=== PATIENT | female | born 1940 | race Caucasian/White ===

== ENCOUNTER → 2016-11-22 | Outpatient (CLI) | payer MEDICARE, BC | LOC: MW.CHGS 08:00 | PROVIDERS: ATTEND Surgery | DX: K57.90 Diverticulosis of intestine, part unspecified, without perforation or abscess without bleeding (principal); K52.9 Noninfective gastroenteritis and colitis, unspecified; E11.9 Type 2 diabetes mellitus without complications | CPT/HCPCS: G0463 ==

== ENCOUNTER 2017-09-17 21:26 | Observation (INO) | payer MEDICARE, BC ==
[2017-09-17] MEDS ORDERED: Diltiazem 25 MG/5 ML SDV IVPUSH ONE (21:37)
[2017-09-17] MEDS ORDERED: Sodium Chloride 0.9% 2.5 ML Syringe FLUSH PRN (21:37)
[2017-09-17] MEDS ORDERED: Sodium Chloride 0.9% 10 ML Syringe FLUSH PRN (21:37)
[2017-09-17] MEDS ORDERED: Sodium Chloride 0.9% 1,000 ML IV ONE (21:37)
--- NOTE | 2017-09-17 21:41 | EDM.PDOC ---
ED HPI GENERAL MEDICAL PROBLEM - General Chief Complaint: Cardiovascular Problem Stated Complaint: PT HEART RACING Time Seen by Provider: 09/17/17 21:30 - History of Present Illness INITIAL COMMENTS - FREE TEXT/NARRATIVE: HISTORY AND PHYSICAL: History of present illness: The patient is a 77-year-old female who follows at [facility] with Dr. Brooks and was in fact seen there today by Lisa Morton and has a history of hypercholesterolemia hypertension and insulin requiring diabetes as well as diverticulitis and presents to the ER with palpitations/racing heart that started a few hours ago. Patient said that she has been on antibiotic for diverticulitis the last 5 days and on her clinic visit today the provider stopped one of those antibiotics. Her blood sugar has been running on the higher side in the 300s the last few days and she saw the agency operator at [place] as well today who increased her insulin dose. Patient says that the diverticulitis is not causing any pain and she has not had fevers nausea vomiting or diarrhea. She's been eating and drinking normally. Patient has never had any arrhythmias or thyroid disease and has never had any cardiac problems. She says she's been having normal urine output and has no complaints. She said that her sugar has been consistently high but she has not been able to try the new adjustment that was started today. She denies any chest pain shortness of breath lightheadedness or dizziness with these palpitations. She also tells me that her blood pressure has been running on the higher side recently as well and her provider was aware of that. Patient also denies any upper respiratory symptoms and fevers. Patient has not had symptoms of polyuria or polydipsia consistent with elevated blood sugar and she says that her blood sugars have been running high for several days prior to the onset of this palpitations. Please note that the patient was taking her NovoLog insulin 10 units a day and the agency operator increased it to 11 units a day Review of systems: As per history of present illness and below otherwise all systems reviewed and negative. Past medical history: As per history of present illness and as reviewed below otherwise noncontributory. Surgical history: As per history of present illness and as reviewed below otherwise noncontributory. Social history: No reported history of drug or alcohol abuse. Family history: As per history of present illness and as reviewed below otherwise noncontributory. Physical exam: Gen.: Well-developed well-nourished thin female who is nontoxic and vital signs of the note by me. HEENT: Atraumatic, normocephalic, pupils reactive, negative for conjunctival pallor or scleral icterus, mucous membranes moist, throat clear, neck supple, nontender, trachea midline. There is no thyromegaly. Lungs: Clear to auscultation, breath sounds equal bilaterally, chest nontender. Heart: S1S2, regular rhythm but tachycardic rate of my evaluation, negative for clicks, rubs, or JVD. Abdomen: Soft, nondistended, nontender. There is no masses rebound guarding or any tenderness on diffuse palpation. Negative for masses or hepatosplenomegaly. Negative for costovertebral tenderness. Pelvis: Stable nontender. Genitourinary: Deferred. Rectal: Deferred. Extremities: Atraumatic, negative for cords or calf pain. Neurovascular unremarkable. No pedal edema or leg asymmetry Neuro: Awake, alert, oriented. Cranial nerves II through XII unremarkable. Cerebellum unremarkable. Motor and sensory unremarkable throughout. Exam nonfocal. Diagnostics: EKG 2 CBC CMP troponin TSH serum ketones INR UA chest x-ray magnesium lactic acid Therapeutics: IV O2 monitor IV fluids Cardizem insulin as needed 2218: Dr. Queen is in the ER seeing another patient and I have informed him of this case. He would like to add a magnesium and a lactate to the patient's labs and he is aware on giving IV fluids insulin for her Accu-Chek here as well as Cardizem. He is agreeable to observation admission. 2250: Patient's heart rate is improved and we will repeat an EKG to document this and to reevaluate the rhythm. 2325: I discussed with the patient all testing care results and my concern about the sudden onset of tachycardia which is since resolved with IV fluids and Cardizem. I discussed observation on telemetry and she is agreeable. Dr. Queen had seen the patient earlier and said that if all workup was normal that he would be agreeable to admission Impression: Sudden onset of palpitations improved, mild hyperglycemia with history of diabetes Definitive disposition and diagnosis as appropriate pending reevaluation and review of above. denies chest pain Pain Score (Numeric/FACES): 0 - Related Data Allergies Allergy/AdvReac Type Severity Reaction Status Date / Time celecoxib [From Celebrex] Allergy Airway Verified 09/17/17 21:34 Tightness Sulfa (Sulfonamide Allergy Anaphylactic Verified 09/17/17 21:34 Antibiotics) Shock Home Meds: Home Meds Aspirin [Adult Low Dose Aspirin EC] 1 tab PO DAILY 10/03/16 [History] Calcium Citrate/Vitamin D3 [Citracal + D Maximum Caplet] 1 tab PO BID 10/03/16 [ History] Naproxen Sodium [Aleve] 1 tab PO ASDIRECTED PRN 10/03/16 [History] [place]-3S/DHA/Epa/Fish Oil [[place]-3 Fish Oil 1,200 mg Sfgl] 1 cap PO DAILY [History] Simvastatin [Zocor] 1 tab PO DAILY 10/03/16 [History] Insulin Isophane NPH, Human [NovoLIN N] 11 units INJECT DAILY 09/17/17 [History] Pioglitazone HCl [Pioglitazone HCl] 1 tab PO DAILY 09/17/17 [History] Past Medical History Other HEENT History: wears glasses Cardiovascular History: Reports: High Cholesterol Respiratory History: Reports: None Gastrointestinal History: Reports: Chronic Diarrhea, Diverticulosis Genitourinary History: Reports: None MINER OPERATOR History: Reports: None Musculoskeletal History: Reports: Arthritis, Back Pain, Chronic Neurological History: Reports: None Psychiatric History: Reports: None Endocrine/Metabolic History: Reports: Diabetes, Type II Hematologic History: Reports: None Immunologic History: Reports: None Oncologic (Cancer) History: Reports: None Dermatologic History: Reports: None - Infectious Disease History Infectious Disease History: Reports: None - Past Surgical History Head Surgeries/Procedures: Reports: None HEENT Surgical History: Reports: None Respiratory Surgical History: Reports: None Female Surgical History: Reports: Hysterectomy, Oophorectomy Neurological Surgical History: Reports: None Musculoskeletal Surgical History: Reports: Shoulder Surgery Oncologic Surgical History: Reports: None Dermatological Surgical History: Reports: None Social & Family History - Family History Family Medical History: Noncontributory - Tobacco Use Smoking Status *Q: Never Smoker - Caffeine Use Caffeine Use: Reports: Coffee - Recreational Drug Use Recreational Drug Use: No Drug Use in Last 12 Months: No ED ROS GENERAL - Review of Systems Review Of Systems: ROS reveals no pertinent complaints other than HPI. ED EXAM, GENERAL - Physical Exam Exam: See Below (See dictation) Course - Vital Signs Last Recorded V/S: Last Vital Signs Temp 36.4 C 09/17/17 21:34 Pulse 78 09/17/17 23:02 Resp 20 09/17/17 23:02 BP 152/92 H 09/17/17 23:02 Pulse Ox 98 09/17/17 23:02 - Orders/Labs/Meds Orders: Active Orders 24 hr Category Date Time Status Patient Status [ADT] Stat ADT 09/17/17 23:38 Ordered Blood Glucose Check, Bedside [RC] ONETIME Care 09/17/17 21:36 Active Cardiac Monitoring [RC] . DIRECTED Care 09/17/17 21:36 Active EKG Documentation Completion [RC] STAT Care 09/17/17 21:36 Active EKG Documentation Completion [RC] STAT Care 09/17/17 22:58 Active Oxygen Therapy, ED [RC] ASDIRECTED Care 09/17/17 21:36 Active Pulse Oximetry [RC] ASDIRECTED Care 09/17/17 21:36 Active Chest 1V Frontal [CR] Stat Exams 09/17/17 21:42 Taken Sodium Chloride 0.9% [Saline Flush] Med 09/17/17 21:37 Active 10 ml FLUSH ASDIRECTED PRN Sodium Chloride 0.9% [Saline Flush] Med 09/17/17 21:37 Active 2.5 ml FLUSH ASDIRECTED PRN Saline Lock Insert [OM.PC] Stat Oth 09/17/17 21:36 Ordered Medication Orders Sodium Chloride (Saline Flush) 10 ml FLUSH ASDIRECTED PRN PRN Reason: Keep Vein Open Sodium Chloride (Saline Flush) 2.5 ml FLUSH ASDIRECTED PRN PRN Reason: Keep Vein Open Labs: Laboratory Tests 09/17/17 09/17/17 09/17/17 Range/Units 21:50 22:12 22:12 WBC 4.44 (4.0-11.0) K/uL RBC 4.21 L (4.30-5.90) M/uL Hgb 12.4 (12.0-16.0) g/dL Hct 36.7 (36.0-46.0) % MCV 87.2 (80.0-98.0) fL MCH 29.5 (27.0-32.0) pg MCHC 33.8 (31.0-37.0) g/dL RDW Std Deviation 43.0 (28.0-62.0) fl RDW Coeff of Shae 14 (11.0-15.0) % Plt Count 331 (150-400) K/uL MPV 9.20 (7.40-12.00) fL Neut % (Auto) 54.1 (48.0-80.0) % Lymph % (Auto) 22.7 (16.0-40.0) % Peach % (Auto) 11.0 (0.0-15.0) % Eos % (Auto) 11.3 H (0.0-7.0) % Baso % (Auto) 0.9 (0.0-1.5) % Neut # (Auto) 2.4 (1.4-5.7) K/uL Lymph # (Auto) 1.0 (0.6-2.4) K/uL Peach # (Auto) 0.5 (0.0-0.8) K/uL Eos # (Auto) 0.5 (0.0-0.7) K/uL Baso # (Auto) 0.0 (0.0-0.1) K/uL Nucleated RBC % 0.0 /100WBC Nucleated RBCs # 0 K/uL INR 1.12 H (0.86-1.11) Lactate (0.20-2.00) mmol/L Sodium 137 (136-146) mmol/L Potassium 4.2 (3.5-5.1) mmol/L Chloride 105 (98-110) mmol/L Carbon Dioxide 23 (21-31) mmol/L BUN 14 (6.0-23.0) mg/dL Creatinine 1.1 (0.6-1.5) mg/dL Est Cr Clr Drug Dosing 36.39 mL/min Estimated GFR (MDRD) 48.4 ml/min Glucose 352 H (60-110) mg/dL POC Glucose (60-110) mg/dL Calcium 9.4 (8.8-10.8) mg/dL Magnesium (1.5-2.3) mEq/L Total Bilirubin 0.1 (0.1-1.5) mg/dL AST 16 (5-40) IU/L ALT 14 (8-54) IU/L Alkaline Phosphatase 70 (40-150) Troponin I < 0.10 (0.0-0.29) NG/ML Total Protein 6.7 (6.0-8.0) g/dL Albumin 3.6 (3.4-4.8) g/dL Globulin 3.1 (2.0-3.5) g/dL Albumin/Globulin Ratio 1.2 L (1.3-2.8) TSH 3rd Generation 1.64 (0.47-5.0) uIU/mL Urine Color Urine Appearance Urine pH (5.0-8.0) Ur Specific Continental (1.001-1.035) Urine Protein (NEGATIVE) mg/dL Urine Glucose (UA) (NEGATIVE) mg/dL Urine Ketones (NEGATIVE) mg/dL Urine Occult Blood (NEGATIVE) Urine Nitrite (NEGATIVE) Urine Bilirubin (NEGATIVE) Urine Urobilinogen (<2.0) EU/dL Ur Leukocyte Esterase (NEGATIVE) Urine RBC (0-2/HPF) Urine WBC (0-5/HPF) Ur Epithelial Cells (NONE-FEW) Urine Bacteria (NEGATIVE) Ketones (NEG) 09/17/17 09/17/17 09/17/17 Range/Units 22:12 22:12 22:12 WBC (4.0-11.0) K/uL RBC (4.30-5.90) M/uL Hgb (12.0-16.0) g/dL Hct (36.0-46.0) % MCV (80.0-98.0) fL MCH (27.0-32.0) pg MCHC (31.0-37.0) g/dL RDW Std Deviation (28.0-62.0) fl RDW Coeff of Shae (11.0-15.0) % Plt Count (150-400) K/uL MPV (7.40-12.00) fL Neut % (Auto) (48.0-80.0) % Lymph % (Auto) (16.0-40.0) % Peach % (Auto) (0.0-15.0) % Eos % (Auto) (0.0-7.0) % Baso % (Auto) (0.0-1.5) % Neut # (Auto) (1.4-5.7) K/uL Lymph # (Auto) (0.6-2.4) K/uL Peach # (Auto) (0.0-0.8) K/uL Eos # (Auto) (0.0-0.7) K/uL Baso # (Auto) (0.0-0.1) K/uL Nucleated RBC % /100WBC Nucleated RBCs # K/uL INR (0.86-1.11) Lactate 0.7 (0.20-2.00) mmol/L Sodium (136-146) mmol/L Potassium (3.5-5.1) mmol/L Chloride (98-110) mmol/L Carbon Dioxide (21-31) mmol/L BUN (6.0-23.0) mg/dL Creatinine (0.6-1.5) mg/dL Est Cr Clr Drug Dosing mL/min Estimated GFR (MDRD) ml/min Glucose (60-110) mg/dL POC Glucose (60-110) mg/dL Calcium (8.8-10.8) mg/dL Magnesium 1.3 L (1.5-2.3) mEq/L Total Bilirubin (0.1-1.5) mg/dL AST (5-40) IU/L ALT (8-54) IU/L Alkaline Phosphatase (40-150) Troponin I (0.0-0.29) NG/ML Total Protein (6.0-8.0) g/dL Albumin (3.4-4.8) g/dL Globulin (2.0-3.5) g/dL Albumin/Globulin Ratio (1.3-2.8) TSH 3rd Generation (0.47-5.0) uIU/mL Urine Color Urine Appearance Urine pH (5.0-8.0) Ur Specific [place] (1.001-1.035) Urine Protein (NEGATIVE) mg/dL Urine Glucose (UA) (NEGATIVE) mg/dL Urine Ketones (NEGATIVE) mg/dL Urine Occult Blood (NEGATIVE) Urine Nitrite (NEGATIVE) Urine Bilirubin (NEGATIVE) Urine Urobilinogen (<2.0) EU/dL Ur Leukocyte Esterase (NEGATIVE) Urine RBC (0-2/HPF) Urine WBC (0-5/HPF) Ur Epithelial Cells (NONE-FEW) Urine Bacteria (NEGATIVE) Ketones NEGATIVE (NEG) 09/17/17 09/17/17 Range/Units 22:17 22:49 WBC (4.0-11.0) K/uL RBC (4.30-5.90) M/uL Hgb (12.0-16.0) g/dL Hct (36.0-46.0) % MCV (80.0-98.0) fL MCH (27.0-32.0) pg MCHC (31.0-37.0) g/dL RDW Std Deviation (28.0-62.0) fl RDW Coeff of Shae (11.0-15.0) % Plt Count (150-400) K/uL MPV (7.40-12.00) fL Neut % (Auto) (48.0-80.0) % Lymph % (Auto) (16.0-40.0) % Peach % (Auto) (0.0-15.0) % Eos % (Auto) (0.0-7.0) % Baso % (Auto) (0.0-1.5) % Neut # (Auto) (1.4-5.7) K/uL Lymph # (Auto) (0.6-2.4) K/uL Peach # (Auto) (0.0-0.8) K/uL Eos # (Auto) (0.0-0.7) K/uL Baso # (Auto) (0.0-0.1) K/uL Nucleated RBC % /100WBC Nucleated RBCs # K/uL INR (0.86-1.11) Lactate (0.20-2.00) mmol/L Sodium (136-146) mmol/L Potassium (3.5-5.1) mmol/L Chloride (98-110) mmol/L Carbon Dioxide (21-31) mmol/L BUN (6.0-23.0) mg/dL Creatinine (0.6-1.5) mg/dL Est Cr Clr Drug Dosing mL/min Estimated GFR (MDRD) ml/min Glucose (60-110) mg/dL POC Glucose 304 H (60-110) mg/dL Calcium (8.8-10.8) mg/dL Magnesium (1.5-2.3) mEq/L Total Bilirubin (0.1-1.5) mg/dL AST (5-40) IU/L ALT (8-54) IU/L Alkaline Phosphatase (40-150) Troponin I (0.0-0.29) NG/ML Total Protein (6.0-8.0) g/dL Albumin (3.4-4.8) g/dL Globulin (2.0-3.5) g/dL Albumin/Globulin Ratio (1.3-2.8) TSH 3rd Generation (0.47-5.0) uIU/mL Urine Color YELLOW Urine Appearance CLEAR Urine pH 6.5 (5.0-8.0) Ur Specific [place] 1.010 (1.001-1.035) Urine Protein NEGATIVE (NEGATIVE) mg/dL Urine Glucose (UA) >=1000 (NEGATIVE) mg/dL Urine Ketones NEGATIVE (NEGATIVE) mg/dL Urine Occult Blood NEGATIVE (NEGATIVE) Urine Nitrite NEGATIVE (NEGATIVE) Urine Bilirubin NEGATIVE (NEGATIVE) Urine Urobilinogen 0.2 (<2.0) EU/dL Ur Leukocyte Esterase NEGATIVE (NEGATIVE) Urine RBC 0-1 (0-2/HPF) Urine WBC 0-1 (0-5/HPF) Ur Epithelial Cells OCCASIONAL (NONE-FEW) Urine Bacteria RARE (NEGATIVE) Ketones (NEG) Meds: Medications Generic Name Dose Route Start Last Admin Trade Name Freq PRN Reason Stop Dose Admin Sodium Chloride 10 ml 09/17/17 21:37 Saline Flush FLUSH ASDIRECTED PRN Keep Vein Open Sodium Chloride 2.5 ml 09/17/17 21:37 Saline Flush FLUSH ASDIRECTED PRN Keep Vein Open Discontinued Medications Generic Name Dose Route Start Last Admin Trade Name Freq PRN Reason Stop Dose Admin Diltiazem HCl 10 mg 09/17/17 21:37 09/17/17 22:08 Diltiazem IVPUSH 09/17/17 21:38 10 mg ONETIME ONE Administration Sodium Chloride 1,000 mls @ 999 mls/hr 09/17/17 21:37 09/17/17 22:08 Normal Saline IV 09/17/17 22:37 999 mls/hr STAT ONE Administration Insulin Human Regular 10 unit 09/17/17 22:18 09/17/17 22:36 Novolin R SUBCUT 09/17/17 22:19 10 units ONETIME ONE Administration Protocol Magnesium Oxide 400 mg 09/17/17 23:06 09/17/17 23:25 Magnesium Oxide PO 09/17/17 23:07 400 mg ONETIME ONE Administration Departure - Departure Time of Disposition: 23:40 Disposition: Refer to Observation Condition: Good Clinical Impression: Palpitations Referrals: PCP,None [Primary Care Provider] - Forms: ED Department Discharge - My Orders Last 24 Hours: My Active Orders 09/17/17 21:36 Blood Glucose Check, Bedside [RC] ONETIME Cardiac Monitoring [RC] . DIRECTED EKG Documentation Completion [RC] STAT Oxygen Therapy, ED [RC] ASDIRECTED Pulse Oximetry [RC] ASDIRECTED Saline Lock Insert [OM.PC] Stat 09/17/17 21:37 Sodium Chloride 0.9% [Saline Flush] 10 ml FLUSH ASDIRECTED PRN Sodium Chloride 0.9% [Saline Flush] 2.5 ml FLUSH ASDIRECTED PRN 09/17/17 21:42 Chest 1V Frontal [CR] Stat 09/17/17 22:58 EKG Documentation Completion [RC] STAT 09/17/17 23:38 Patient Status [ADT] Stat - Assessment/Plan Last 24 Hours: My Active Orders 09/17/17 21:36 Blood Glucose Check, Bedside [RC] ONETIME Cardiac Monitoring [RC] . DIRECTED EKG Documentation Completion [RC] STAT Oxygen Therapy, ED [RC] ASDIRECTED Pulse Oximetry [RC] ASDIRECTED Saline Lock Insert [OM.PC] Stat 09/17/17 21:37 Sodium Chloride 0.9% [Saline Flush] 10 ml FLUSH ASDIRECTED PRN Sodium Chloride 0.9% [Saline Flush] 2.5 ml FLUSH ASDIRECTED PRN 09/17/17 21:42 Chest 1V Frontal [CR] Stat 09/17/17 22:58 EKG Documentation Completion [RC] STAT 09/17/17 23:38 Patient Status [ADT] Stat
[2017-09-17] MEDS ORDERED: Insulin Regular, Human 100 Units/ML 10 ML Vial SUBCUT ONE (22:18)
[2017-09-17 22:49] LABS: CHLORIDE,CL 105 mmol/L (98-110); SODIUM,NA 137 mmol/L (136-146)
[2017-09-17] MEDS ORDERED: Magnesium Oxide 400 MG Tab PO ONE (23:06)
[2017-09-18] MEDS ORDERED: Metoprolol Tartrate 25 MG Tab PO ONE (01:43)
--- NOTE | 2017-09-18 08:21 | PCM.HP ---
H&P History of Present Illness - General Date of Service: 09/18/17 Admit Problem/Dx: Admission Diagnosis/Problem Admission Diagnosis/Problem Palpitations Source of Information: Patient History Limitations: Reports: No Limitations - History of Present Illness Initial Comments - Free Text/Narative: This 77 year old female with pmh of DM type 2, on insulin, hypercholesterolema and diverticulosis being treated for current flare of diverticulitis presented to the ED with complaints of palpitations. She reports she was sitting at home and felt palpitations, she reports she sometimes gets these but within 10 secs it is gone. This time it lingered and she was concerned so she came to the ED. She denied any associated symptoms, no chest pain or SOB. She reports nothing helped it. She has been taking antibiotics for diverticulitis and was recently taken off one by Eden Morton NP at [place]. She also reports BS have been elevated in the 300s, she was seen by Brittany DM educator at the clinic and her Novolin N was increased to 11 units from 10 and was told to monitor it and it if remained elevated to increase it again to 12 and contact the clinic for follow up. She denies URI or abdominal pain. She is eating and drinking ok. She did note her BP wsa elevated and her PCP is aware, but no treatment was given. In the ED labwork WNL, BS noted to be in the 300s, and magnesium noted to be 1.3. EKG was completed and revealed SVT rates in 140s. She was treated with IVFs and Diltiazem. She was also give Mag oxide. She wsa admitted observation for tachycardia. PCP, Dr Brooks. denies chest pain Pain Score (Numeric/FACES): 0 - Related Data Allergies/Adverse Reactions: Allergies Allergy/AdvReac Type Severity Reaction Status Date / Time celecoxib [From Celebrex] Allergy Airway Verified 09/17/17 21:34 Tightness Sulfa (Sulfonamide Allergy Anaphylactic Verified 09/17/17 21:34 Antibiotics) Shock Home Medications: Home Meds Aspirin [Adult Low Dose Aspirin EC] 1 tab PO DAILY 10/03/16 [History] Calcium Citrate/Vitamin D3 [Citracal + D Maximum Caplet] 1 tab PO BID 10/03/16 [ History] Naproxen Sodium [Aleve] 1 tab PO ASDIRECTED PRN 10/03/16 [History] Paradise-3S/DHA/Epa/Fish Oil [Paradise-3 Fish Oil 1,200 mg Sfgl] 1 cap PO DAILY [History] Simvastatin [Zocor] 1 tab PO DAILY 10/03/16 [History] Insulin Isophane NPH, Human [NovoLIN N] 11 units INJECT DAILY 09/17/17 [History] Pioglitazone HCl 1 tab PO DAILY 09/17/17 [History] Magnesium Oxide 400 mg PO DAILY #30 tablet 09/18/17 [Rx] Metoprolol Tartrate 25 mg PO DAILY #30 tablet 09/18/17 [Rx] Past Medical History Other HEENT History: wears glasses Cardiovascular History: Reports: High Cholesterol. Denies: Afib, Blood Clots/ VTE/DVT Respiratory History: Reports: None. Denies: Asthma, COPD, PE Gastrointestinal History: Reports: Diverticulosis (currently being treated as outpatient for diverticulitis. reports she has colonoscopy on Oct 11 to evaluate thickened sectin of colon) Genitourinary History: Reports: None. Denies: Acute Renal Failure, Chronic Renal Insuffiency TREE EXPERT History: Reports: None Musculoskeletal History: Reports: Arthritis, Back Pain, Chronic Neurological History: Reports: None. Denies: CVA, TIA Psychiatric History: Reports: None. Denies: Anxiety, Depression Endocrine/Metabolic History: Reports: Diabetes, Type II. Denies: Hypothyroidism Hematologic History: Reports: None Immunologic History: Reports: None Oncologic (Cancer) History: Reports: None Dermatologic History: Reports: None - Infectious Disease History Infectious Disease History: Reports: Chicken Pox, Measles - Past Surgical History Head Surgeries/Procedures: Reports: None HEENT Surgical History: Reports: None Cardiovascular Surgical History: Reports: None Respiratory Surgical History: Reports: None GI Surgical History: Reports: Colonoscopy Female Surgical History: Reports: Hysterectomy, Oophorectomy Neurological Surgical History: Reports: None Musculoskeletal Surgical History: Reports: Shoulder Surgery, Other (See Below) Other Musculoskeletal Surgeries/Procedures:: torn rotator cuff Oncologic Surgical History: Reports: None Dermatological Surgical History: Reports: None Social & Family History - Family History Family Medical History: Noncontributory - Tobacco Use Smoking Status *Q: Never Smoker Second Hand Smoke Exposure: No - Caffeine Use Caffeine Use: Reports: Coffee - Recreational Drug Use Recreational Drug Use: No Drug Use in Last 12 Months: No H&P Review of Systems - Review of Systems: Review Of Systems: See Below General: Reports: No Symptoms. Denies: Fever, Chills, Malaise, Weakness HEENT: Reports: No Symptoms. Denies: Contact Lenses, Headaches, Sinus Congestion, Sore Throat, Vertigo, Visual Changes Pulmonary: Reports: No Symptoms. Denies: Shortness of Breath, Wheezing, Cough, Sputum Cardiovascular: Reports: No Symptoms. Denies: Chest Pain, Palpitations, Edema, Lightheadedness Gastrointestinal: Reports: No Symptoms, Flatus. Denies: Abdominal Pain, Anorexia, Black Stool, Bloody Stool, Distension, Nausea, Vomiting Genitourinary: Reports: No Symptoms. Denies: Dysuria, Frequency, Burning Musculoskeletal: Reports: No Symptoms. Denies: Neck Pain Skin: Reports: No Symptoms Neurological: Reports: No Symptoms. Denies: Confusion Hematologic/Lymphatic: Reports: No Symptoms. Denies: Anemia Immunologic: Reports: No Symptoms Exam - Exam Exam: See Below - Vital Signs Vital Signs: Last Vital Signs Temp 98.3 F 09/18/17 04:00 Pulse 83 09/18/17 04:00 Resp 18 09/18/17 04:00 BP 130/85 09/18/17 04:00 Pulse Ox 94 L 09/18/17 04:00 Weight: 59.466 kg - Exam General: Alert, Oriented, Cooperative HEENT: Conjunctiva Clear, Mucosa Moist & [place], Pupils Reactive Neck: Supple, Trachea Midline, 2 Lungs: Clear to Auscultation, Normal Respiratory Effort Cardiovascular: Regular Rate, Regular Rhythm, Normal S1, Normal S2. No: Irregular Rhythm, Tachycardia, Systolic Murmur Back Exam: Normal Inspection, Full Range of Motion, NT Extremities: Normal Inspection, Normal Range of Motion, Non-Tender, No Pedal Edema, Normal Capillary Refill Neuro Extensive - Mental Status: Alert, Oriented x3, Normal Mood/Affect, Normal Cognition Psychiatric: Alert, Normal Affect, Normal Mood - Patient Data Lab Results Last 24 hrs: Laboratory Results - last 24 hr 09/18/17 09/18/17 09/18/17 Range/Units 01:24 02:11 06:34 POC Glucose 47 L 122 H 128 H (60-110) mg/dL Result Diagrams: 09/18/17 08:30 09/18/17 08:30 EKG INTERPRETATION EKG Date: 09/17/17 Time: 23:01 Rhythm: Other (SVT) Rate (Beats/Min): 149 EKG Interpretation Comments: Initial EKG, SVT with rate in 140s. repeat after fluids and Diltiazem, SR rates 70s. *Q Meaningful Use (ADM) - VTE *Q VTE Criteria *Q: - Stroke *Q Stroke Criteria *Q: - AMI *Q AMI Criteria *Q: - Problem List (1) Palpitations SNOMED Code(s): 86374920 ICD Code: R00.2 - PALPITATIONS Status: Acute (2) HTN (hypertension) SNOMED Code(s): 02237632 ICD Code: I10 - ESSENTIAL (PRIMARY) HYPERTENSION Status: Chronic Qualifiers: Hypertension type: essential hypertension Qualified Code(s): I10 - Essential (primary) hypertension (3) DM type 2 (diabetes mellitus, type 2) SNOMED Code(s): 24405940 ICD Code: E11.9 - TYPE 2 DIABETES MELLITUS WITHOUT COMPLICATIONS Status: Chronic Qualifiers: Diabetes mellitus complication status: with hyperglycemia Diabetes mellitus senior living insulin use: with senior living use Qualified Code(s): E11.65 - Type 2 diabetes mellitus with hyperglycemia; Z79.4 - tank terminal gauger (current) use of insulin; Z79.4 - tank terminal gauger (current) use of insulin; Z79.4 - tank terminal gauger ( current) use of insulin; Z79.4 - tank terminal gauger (current) use of insulin (4) Diverticulitis large intestine SNOMED Code(s): 5260472 ICD Code: K57.32 - DVTRCLI OF LG INT W/O PERFORATION OR ABSCESS W/O BLEEDING Status: Acute Qualifiers: Diverticulitis bleeding: without bleeding Diverticulitis complication: without perforation or abscess Qualified Code(s): K57.32 - Diverticulitis of large intestine without perforation or abscess without bleeding Problem List Initiated/Reviewed/Updated: Yes Orders Last 24hrs: Active Orders 24 hr Category Date Time Status Blood Glucose Check, Bedside [RC] TIDAC Care 09/18/17 06:00 Active Telemetry Monitoring [Cardiac Monitoring] [RC] Q8H Care 09/17/17 23:30 Active [employer] Diet [DIET] Diet 09/18/17 Breakfast Active BASIC METABOLIC PANEL,BMP [CHEM] Routine Lab 09/18/17 08:17 Ordered CBC WITH AUTO DIFF [HEME] Routine Lab 09/18/17 08:17 Ordered MAGNESIUM [CHEM] Routine Lab 09/18/17 08:17 Ordered Aspirin [Halfprin] Med 09/18/17 09:00 Ordered DOSE mg PO DAILY Calcium Citrate/Vitamin D3 Med 09/18/17 09:00 Ordered 1 tab PO BID Insulin Isophane NPH, Human [NovoLIN N] Med 09/18/17 09:00 Ordered 11 unit SUBCUT DAILY Paradise-3S/DHA/Epa/Fish Oil [Paradise-3 Fish Oil 1,200 mg Med 09/18/17 09:00 Ordered Sfgl] 1 cap PO DAILY Pioglitazone [Actos] Med 09/18/17 09:00 Ordered DOSE mg PO DAILY Simvastatin [Zocor] Med 09/18/17 09:00 Ordered DOSE mg PO DAILY Medication Orders Aspirin (Halfprin) mg PO DAILY REJI Insulin Human NPH (Novolin N) 11 unit SUBCUT DAILY REJI Non-Formulary Medication (Calcium Citrate/Vitamin D3) 1 tab PO BID REJI Non-Formulary Medication (Paradise-3s/Dha/Epa/Fish Oil [Paradise-3 Fish Oil 1,200 Mg Sfgl]) 1 cap PO DAILY REJI Pioglitazone HCl (Actos) mg PO DAILY REJI Simvastatin (Zocor) mg PO DAILY REJI Sodium Chloride (Saline Flush) 10 ml FLUSH ASDIRECTED PRN PRN Reason: Keep Vein Open Sodium Chloride (Saline Flush) 2.5 ml FLUSH ASDIRECTED PRN PRN Reason: Keep Vein Open Assessment/Plan Comment:: This 77 year old female was admitted for palpitations and HTN. 1. Palpitations: No further palpitations since arrival to ED. Monitored on Telemetry, which has shown no sinus tachy or SVT. She was started on Metoprolol tartrate 25 mg daily due to HTN and heart rate. She has done well today. Magnesium was 1.0 this morning, she was given 4 gm IV and repeat this after was 2.4. 2. DM type 2 Continue with current care, close monitoring and follow up with elevate BS. fasting BS this morning, 120s, post meals they have been elevated in 200-300s. Discharge plan: Brittany was treated for palpitations. She is very eager for discharge home. Metoprolol was started and will be continued at discharge. She was encouraged to take magnesium 400 mg daily to help with hypomagnesemia. She is to continue taking antibiotics as PCP has instructed and follow up with Dr. Brooks next week. She is to closely monitor BS as well and increase Novolin N as instructed per DM educator. She is to return to ED or clinic if concerns should arise.
[2017-09-18] MEDS ORDERED: Fish Oil/Omega-3 Fatty Acids 1 Gm Cap PO SCH (09:00)
[2017-09-18] MEDS ORDERED: Aspirin 81 MG Tab.EC PO SCH (09:00)
[2017-09-18] MEDS ORDERED: Insulin Isophane NPH, Human 100 Units/ML 10 ML Vial SUBCUT SCH (09:00)
[2017-09-18] MEDS ORDERED: Pioglitazone 15 MG Tab PO SCH (09:00)
[2017-09-18 09:08] LABS: CHLORIDE,CL 106 mmol/L (98-110); SODIUM,NA 137 mmol/L (136-146)
[2017-09-18] MEDS ORDERED: Magnesium Sulfate/Water 4 GM in Premix Bag 1 BAG IV ONE (09:30)
--- NOTE | 2017-09-18 11:18 | CR ---
EXAM DATE: 09/17/17 PATIENT'S AGE: 77 Patient: GUILLERMO MENDEZ Facility: [place], [place] Site . Site : [id number] Study: XRay Chest [id number]/9/2018 10:08:42 PM Ordering Physician: Doctor Morin Final Report: INDICATION: Pain, shortness of breath TECHNIQUE: Chest radiograph 1 view COMPARISON: None FINDINGS: Mediastinum: The heart silhouette is normal in size and morphology. The mediastinum is normal in appearance. Lungs: Bilateral hyperinflation is present and suggestive of moderate pulmonary emphysema. No sign of pleural effusion seen. No pneumothorax is identified. Bones and soft tissue: Unremarkable for age. IMPRESSION: 1. Bilateral hyperinflation is present and suggestive of moderate pulmonary emphysema. Dictated by: Thierry Delatorre MD @ 09/17/2017 22:10:48 (Electronic Signature) Report Signed by Proxy. LENA
[2017-09-18] MEDS ORDERED: Calcium Carbonate/Vitamin D3 1500 MG-400 Units Tab PO SCH (12:00)
[2017-09-18 13:56] VITALS: BP 119/74
[2017-09-18] MEDS ORDERED: Simvastatin 20 MG Tab PO SCH (21:00)
== END 2017-09-18 15:38 | disposition home or self-care (01) ==
LOC: MW.ED 21:26 → MW.MS 23:38
PROVIDERS: ADMIT Internal Medicine; ATTEND Internal Medicine
DX: I47.1 Supraventricular tachycardia (principal); E11.9 Type 2 diabetes mellitus without complications; E78.00 Pure hypercholesterolemia, unspecified; M19.90 Unspecified osteoarthritis, unspecified site; I10 Essential (primary) hypertension; K57.32 Diverticulitis of large intestine without perforation or abscess without bleeding; E83.42 Hypomagnesemia; Z79.4 Long term (current) use of insulin; Z88.2 Allergy status to sulfonamides; Z88.8 Allergy status to other drugs, medicaments and biological substances; Z79.82 Long term (current) use of aspirin; Z79.899 Other long term (current) drug therapy; Z90.710 Acquired absence of both cervix and uterus; Z90.722 Acquired absence of ovaries, bilateral
CPT/HCPCS: 36415; 71045; 80048; 80053; 81001; 82009; 82962; 83605; 83735; 84443; 84484; 85025; 85610; 93005; 96361; 96374; 96375; 99285; A9270; G0378; J1815; J3475; J3490; J7040; 96372; 99284

== ENCOUNTER 2017-10-11 06:25 | Day surgery (SDC) | payer MEDICARE, BC ==
[~2017-10-11 06:25] MED LIST: Lactated Ringers 1,000 ML IV SCH
--- NOTE | 2017-10-11 07:18 | PCM.PREANE ---
Preanesthetic Assessment - Anesthesia/Transfusion/Family Hx Anesthesia History: Prior Anesthesia Without Reaction Transfusion History: No Prior Transfusion(s) - Review of Systems General: No Symptoms Pulmonary: No Symptoms Cardiovascular: No Symptoms Gastrointestinal: No Symptoms Neurological: No Symptoms Other: Reports: None - Physical Assessment NPO Status Date: 10/09/17 NPO Status Time: 22:00 O2 Sat by Pulse Oximetry: 96 Respiratory Rate: 16 Vital Signs: Last Vital Signs Temp 97.3 F 10/11/17 06:30 Pulse 98 10/11/17 06:30 Resp 16 10/11/17 06:30 BP 150/75 H 10/11/17 06:30 Pulse Ox 96 10/11/17 06:30 Height: 5 ft 5 in Weight: 52.617 kg ASA Class: 3 Mental Status: Alert & Oriented x3 Airway Class: Mallampati = 2 Dentition: Reports: Normal Dentition Thyro-Mental Finger Breadths: 3 Mouth Opening Finger Breadths: 3 ROM/Head Extension: Full Lungs: Clear to Auscultation, Normal Respiratory Effort Cardiovascular: Regular Rate, Regular Rhythm - Allergies Allergies/Adverse Reactions: Allergies Allergy/AdvReac Type Severity Reaction Status Date / Time celecoxib [From Celebrex] Allergy Airway Verified 10/08/17 10:54 Tightness Sulfa (Sulfonamide Allergy Anaphylactic Verified 10/08/17 10:54 Antibiotics) Shock - Acknowledgements Anesthesia Type Planned: MAC Pt an Appropriate Candidate for the Planned Anesthesia: Yes Alternatives and Risks of Anesthesia Discussed w Pt/Guardian: Yes Pt/Guardian Understands and Agrees with Anesthesia Plan: Yes PreAnesthesia Questionnaire HEENT History: Reports: Other (See Below) Other HEENT History: wears glasses Cardiovascular History: Reports: High Cholesterol Respiratory History: Reports: None Gastrointestinal History: Reports: Diverticulosis, Other (See Below) Other Gastrointestinal History: diverticulitis Genitourinary History: Reports: None CERTIFIED CODING SPECIALIST History: Reports: None Musculoskeletal History: Reports: Arthritis Neurological History: Reports: None Psychiatric History: Reports: None Endocrine/Metabolic History: Reports: Diabetes, Type II Hematologic History: Reports: None Immunologic History: Reports: None Oncologic (Cancer) History: Reports: None Dermatologic History: Reports: None - Infectious Disease History Infectious Disease History: Reports: Chicken Pox, Measles - Past Surgical History Head Surgeries/Procedures: Reports: None HEENT Surgical History: Reports: None Cardiovascular Surgical History: Reports: None Respiratory Surgical History: Reports: None GI Surgical History: Reports: Appendectomy, Cholecystectomy, Colonoscopy Female Surgical History: Reports: Hysterectomy, Oophorectomy Endocrine Surgical History: Reports: None Neurological Surgical History: Reports: None Musculoskeletal Surgical History: Reports: Shoulder Surgery, Other (See Below) Other Musculoskeletal Surgeries/Procedures:: jefferson rotator cuff repair Oncologic Surgical History: Reports: None Dermatological Surgical History: Reports: None - SUBSTANCE USE Smoking Status *Q: Never Smoker Tobacco Use Within Last Twelve Months: No Second Hand Smoke Exposure: No Recreational Drug Use History: No - HOME MEDS Home Medications: Home Meds Aspirin [Adult Low Dose Aspirin EC] 1 tab PO DAILY 10/03/16 [History] Calcium Citrate/Vitamin D3 [Citracal + D Maximum Caplet] 1 tab PO BID 10/03/16 [ History] Naproxen Sodium [Aleve] 1 tab PO ASDIRECTED PRN 10/03/16 [History] Hanna-3S/DHA/Epa/Fish Oil [Hanna-3 Fish Oil 1,200 mg Sfgl] 1,000 mg PO DAILY [History] Simvastatin [Zocor] 20 mg PO DAILY 10/03/16 [History] Insulin Isophane NPH, Human [NovoLIN N] 15 units INJECT ACBREAKFAST 09/17/17 [ History] Insulin NPH Human Isophane [Novolin N] 1 unit SUBCUT BEDTIME 10/08/17 [History] Magnesium Oxide 250 mg PO DAILY 10/08/17 [History] Pioglitazone HCl 0.5 tab PO DAILY 10/08/17 [History] - CURRENT (IN HOUSE) MEDS Current Meds: Current Medications Lactated Ringer's (Ringers, Lactated) 1,000 mls @ 125 mls/hr IV ASDIRECTED REJI Last Admin: 10/11/17 06:53 Dose: 125 mls/hr
[2017-10-11] MEDS ORDERED: Lidocaine 2% 5 ML SDV ONE (07:34)
[2017-10-11] MEDS ORDERED: Propofol 200 MG/20 ML SDV ONE (07:34)
--- NOTE | 2017-10-11 08:44 | PCM.OPNOTE ---
- General Post-Op/Procedure Note Date of Surgery/Procedure: 10/11/17 Operative Procedure(s): Colonoscopy w/ ascending colon biopsy Pre Op Diagnosis: LLQ pain. Abnormal CT scan Post-Op Diagnosis: Sigmid diverticulosis. Angiodysplasia Anesthesia Technique: MAC (ASA III) Primary Surgeon: Jacky Proctor Condition: Good Free Text/Narrative:: Dictation [id number] CPT CODE [id number]
[2017-10-11] MEDS ORDERED: Lactated Ringers 1,000 ML IV SCH (08:45)
--- NOTE | 2017-10-11 10:24 | PCM48HPAN ---
Post Anesthesia Note - EVALUATION WITHIN 48HRS OF ANESTHETIC Vital Signs in Normal Range: Yes Patient Participated in Evaluation: Yes Respiratory Function Stable: Yes Airway Patent: Yes Cardiovascular Function Stable: Yes Hydration Status Stable: Yes Pain Control Satisfactory: Yes Nausea and Vomiting Control Satisfactory: Yes Mental Status Recovered: Yes
--- NOTE | 2017-10-11 10:24 | PCM.POSTAN ---
POST ANESTHESIA ASSESSMENT - MENTAL STATUS Mental Status: Alert, Oriented - RESPIRATORY Respiratory Status: Respiratory Rate WNL, Airway Patent, O2 Saturation Stable - CARDIOVASCULAR CV Status: Pulse Rate WNL, Blood Pressure Stable - GASTROINTESTINAL GI Status: No Symptoms - POST OP HYDRATION Hydration Status: Adequate & Stable
[2017-10-11 11:12] VITALS: BP 125/57
--- NOTE | 2017-10-11 14:28 | OR ---
SURGEON: Jacky Proctor M.D. DATE OF PROCEDURE: 10/11/2017 OPERATION PERFORMED: Colonoscopy with ascending colon biopsy. ANESTHESIA: MAC. ASA CLASSIFICATION: III. PREOPERATIVE DIAGNOSES: Change in bowel habits, abnormal CT scan with narrowing of the descending colon. POSTOPERATIVE DIAGNOSES: 1. Severe sigmoid diverticulosis without acute inflammation. 2. Mild cecal erythema with tufting of the blood vessels suggestive of angiodysplasia. DESCRIPTION OF PROCEDURE: The patient was taken to the endoscopy room and positioned on the endoscopy table in the left lateral decubitus position. Time-out was called for appropriate identification of the patient and procedure. Monitored anesthesia care was provided. The colonoscope was inserted into the rectum and advanced with significant difficulty through the sigmoid colon to the descending colon. It was then much easier to maneuver the colonoscope to the cecum. The ascending colon does show significant erythema and tufting of the capillaries suggestive of angiodysplasia. Biopsies of this area were obtained. The remainder of the ascending colon, hepatic flexure, transverse colon, splenic flexure, and descending colon showed no tumors, polyps, diverticula, or angiodysplastic changes. The sigmoid colon again demonstrates severe diverticulosis. There was some narrowing of the sigmoid colon, but no acute inflammatory changes. The colonoscope was then withdrawn to the rectum and retroflexed to visualize the anal orifice from above. No tumors or polyps were seen and there were no acute hemorrhoidal changes. The colonoscope was then straightened, the rectum aspirated, and the colonoscope removed. The patient tolerated the procedure well and was taken to recovery room in satisfactory condition. JAMAL / BENJI /[id number]
== END 2017-10-11 09:20 | disposition home or self-care (01) ==
LOC: MW.SDS 06:25
PROVIDERS: ATTEND Surgery
DX: K57.30 Diverticulosis of large intestine without perforation or abscess without bleeding (principal); K52.9 Noninfective gastroenteritis and colitis, unspecified; J30.9 Allergic rhinitis, unspecified; M19.90 Unspecified osteoarthritis, unspecified site; E78.00 Pure hypercholesterolemia, unspecified; E11.9 Type 2 diabetes mellitus without complications; Z88.2 Allergy status to sulfonamides; Z79.82 Long term (current) use of aspirin; Z79.4 Long term (current) use of insulin; Z79.899 Other long term (current) drug therapy; Z90.49 Acquired absence of other specified parts of digestive tract; Z98.890 Other specified postprocedural states; Z90.710 Acquired absence of both cervix and uterus; Z90.722 Acquired absence of ovaries, bilateral; Z88.6 Allergy status to analgesic agent
CPT/HCPCS: 45380; 88305; J7120; J2704

== ENCOUNTER 2018-01-05 01:09 | Emergency (ER) | payer MEDICARE, BC ==
[2018-01-05] MEDS ORDERED: Sodium Chloride 0.9% 10 ML Syringe FLUSH PRN (01:23)
[2018-01-05] MEDS ORDERED: Sodium Chloride 0.9% 1,000 ML IV ONE (01:23)
[2018-01-05] MEDS ORDERED: Sodium Chloride 0.9% 2.5 ML Syringe FLUSH PRN (01:23)
--- NOTE | 2018-01-05 01:24 | EDM.PDOC ---
ED HPI GENERAL MEDICAL PROBLEM - General Chief Complaint: Chest Pain Stated Complaint: RAPID HEARTBEAT Time Seen by Provider: 01/05/18 01:22 - History of Present Illness INITIAL COMMENTS - FREE TEXT/NARRATIVE: HISTORY AND PHYSICAL: History of present illness: Patient's a 77-year-old white female who presents with a concern of palpitations she has similar episode in the past when she was being treated for diverticulitis which is the case currently. She states is improved significantly since arrival she denies associated chest pain nausea vomiting fever chills she states similarly her blood sugar was elevated with the prior episode . Review of systems: As per history of present illness and below otherwise all systems reviewed and negative. Past medical history: As per history of present illness and as reviewed below otherwise noncontributory. Surgical history: As per history of present illness and as reviewed below otherwise noncontributory. Social history: No reported history of drug or alcohol abuse. Family history: As per history of present illness and as reviewed below otherwise noncontributory. Physical exam: HEENT: Atraumatic, normocephalic, pupils reactive, negative for conjunctival pallor or scleral icterus, mucous membranes moist, throat clear, neck supple, nontender, trachea midline. Lungs: Clear to auscultation, breath sounds equal bilaterally, chest nontender. Heart: S1S2, regular, negative for clicks, rubs, or JVD. Abdomen: Soft, nondistended, nontender. Negative for masses or hepatosplenomegaly. Negative for costovertebral tenderness. Pelvis: Stable nontender. Genitourinary: Deferred. Rectal: Deferred. Extremities: Atraumatic, negative for cords or calf pain. Neurovascular unremarkable. Neuro: Awake, alert, oriented. Cranial nerves II through XII unremarkable. Cerebellum unremarkable. Motor and sensory unremarkable throughout. Exam nonfocal. Diagnostics: CBC CMP troponin PT/INR chest x-ray EKG Therapeutics: 9 normal saline 1 L Impression: #1 palpitations #2 history diverticulitis #3 history of diabetes Definitive disposition and diagnosis as appropriate pending reevaluation and review of above. - Related Data Allergies Allergy/AdvReac Type Severity Reaction Status Date / Time celecoxib [From Celebrex] Allergy Airway Verified 10/08/17 10:54 Tightness Sulfa (Sulfonamide Allergy Anaphylactic Verified 10/08/17 10:54 Antibiotics) Shock Home Meds: Home Meds Aspirin [Adult Low Dose Aspirin EC] 1 tab PO DAILY 10/03/16 [History] Calcium Citrate/Vitamin D3 [Citracal + D Maximum Caplet] 1 tab PO BID 10/03/16 [ History] Naproxen Sodium [Aleve] 1 tab PO ASDIRECTED PRN 10/03/16 [History] [place]-3S/DHA/Epa/Fish Oil [[place]-3 Fish Oil 1,200 mg Sfgl] 1,000 mg PO DAILY [History] Simvastatin [Zocor] 20 mg PO DAILY 10/03/16 [History] Insulin Isophane NPH, Human [NovoLIN N] 15 units INJECT ACBREAKFAST 09/17/17 [ History] Insulin NPH Human Isophane [Novolin N] 1 unit SUBCUT BEDTIME 10/08/17 [History] Magnesium Oxide 250 mg PO DAILY 10/08/17 [History] Pioglitazone HCl 0.5 tab PO DAILY 10/08/17 [History] Past Medical History HEENT History: Reports: Other (See Below) Other HEENT History: wears glasses Cardiovascular History: Reports: High Cholesterol Respiratory History: Reports: None Gastrointestinal History: Reports: Diverticulosis, Other (See Below) Other Gastrointestinal History: diverticulitis Genitourinary History: Reports: None [employer]ACHINE History: Reports: None Musculoskeletal History: Reports: Arthritis Neurological History: Reports: None Psychiatric History: Reports: None Endocrine/Metabolic History: Reports: Diabetes, Type II Hematologic History: Reports: None Immunologic History: Reports: None Oncologic (Cancer) History: Reports: None Dermatologic History: Reports: None - Infectious Disease History Infectious Disease History: Reports: Chicken Pox, Measles - Past Surgical History Head Surgeries/Procedures: Reports: None HEENT Surgical History: Reports: None Cardiovascular Surgical History: Reports: None Respiratory Surgical History: Reports: None GI Surgical History: Reports: Appendectomy, Cholecystectomy, Colonoscopy Female Surgical History: Reports: Hysterectomy, Oophorectomy Endocrine Surgical History: Reports: None Neurological Surgical History: Reports: None Musculoskeletal Surgical History: Reports: Shoulder Surgery, Other (See Below) Other Musculoskeletal Surgeries/Procedures:: jefferson rotator cuff repair Oncologic Surgical History: Reports: None Dermatological Surgical History: Reports: None Social & Family History - Family History Family Medical History: Noncontributory - Tobacco Use Smoking Status *Q: Never Smoker Second Hand Smoke Exposure: No - Caffeine Use Caffeine Use: Reports: Coffee - Recreational Drug Use Recreational Drug Use: No Drug Use in Last 12 Months: No ED ROS GENERAL - Review of Systems Review Of Systems: ROS reveals no pertinent complaints other than HPI. ED EXAM, GENERAL - Physical Exam Exam: See Below (See dictation) Course - Vital Signs Text/Narrative:: Patient's emergency department course was unremarkable patient was offered admission for observation and decline Last Recorded V/S: Last Vital Signs Temp 36.7 C 01/05/18 01:16 Pulse 85 01/05/18 02:52 Resp 14 01/05/18 02:52 BP 153/86 H 01/05/18 02:52 Pulse Ox 96 01/05/18 02:52 - Orders/Labs/Meds Orders: Active Orders 24 hr Category Date Time Status Cardiac Monitoring [RC] . DIRECTED Care 01/05/18 01:23 Active EKG Documentation Completion [RC] STAT Care 01/05/18 01:24 Active Oxygen Therapy [RC] ASDIRECTED Care 01/05/18 01:23 Active Pulse Oximetry [RC] ASDIRECTED Care 01/05/18 01:23 Active Chest 1V Frontal [CR] Stat Exams 01/05/18 01:23 Taken Saline Lock Insert [OM.PC] Stat Oth 01/05/18 01:23 Ordered Labs: Laboratory Tests 01/05/18 01/05/18 01/05/18 Range/Units 01:10 01:10 01:10 WBC 6.76 (4.0-11.0) K/uL RBC 4.41 (4.30-5.90) M/uL Hgb 12.9 (12.0-16.0) g/dL Hct 38.2 (36.0-46.0) % MCV 86.6 (80.0-98.0) fL MCH 29.3 (27.0-32.0) pg MCHC 33.8 (31.0-37.0) g/dL RDW Std Deviation 42.4 (28.0-62.0) fl RDW Coeff of Shae 13 (11.0-15.0) % Plt Count 336 (150-400) K/uL MPV 8.80 (7.40-12.00) fL Neut % (Auto) 56.7 (48.0-80.0) % Lymph % (Auto) 28.4 (16.0-40.0) % [place] % (Auto) 9.0 (0.0-15.0) % Eos % (Auto) 5.0 (0.0-7.0) % Baso % (Auto) 0.9 (0.0-1.5) % Neut # (Auto) 3.8 (1.4-5.7) K/uL Lymph # (Auto) 1.9 (0.6-2.4) K/uL [place] # (Auto) 0.6 (0.0-0.8) K/uL Eos # (Auto) 0.3 (0.0-0.7) K/uL Baso # (Auto) 0.1 (0.0-0.1) K/uL Nucleated RBC % 0.0 /100WBC Nucleated RBCs # 0 K/uL INR 1.06 Sodium 137 (136-145) mmol/L Potassium 3.3 L (3.5-5.1) mmol/L Chloride 101 (98-107) mmol/L Carbon Dioxide 25.7 (21.0-32.0) mmol/L BUN 10 (7.0-18.0) mg/dL Creatinine 0.9 (0.6-1.0) mg/dL Est Cr Clr Drug Dosing 45.64 mL/min Estimated GFR (MDRD) > 60.0 ml/min Glucose 302 H (74-106) mg/dL POC Glucose (60-110) mg/dL Calcium 9.7 (8.5-10.1) mg/dL Total Bilirubin 0.1 L (0.2-1.0) mg/dL AST 17 (15-37) IU/L ALT 16 (14-63) IU/L Alkaline Phosphatase 77 (46-116) U/L Troponin I < 0.050 (0.000-0.056) ng/mL Total Protein 7.4 (6.4-8.2) g/dL Albumin 3.2 L (3.4-5.0) g/dL Globulin 4.2 H (2.0-3.5) g/dL Albumin/Globulin Ratio 0.8 L (1.3-2.8) 01/05/18 Range/Units 01:17 WBC (4.0-11.0) K/uL RBC (4.30-5.90) M/uL Hgb (12.0-16.0) g/dL Hct (36.0-46.0) % MCV (80.0-98.0) fL MCH (27.0-32.0) pg MCHC (31.0-37.0) g/dL RDW Std Deviation (28.0-62.0) fl RDW Coeff of Shae (11.0-15.0) % Plt Count (150-400) K/uL MPV (7.40-12.00) fL Neut % (Auto) (48.0-80.0) % Lymph % (Auto) (16.0-40.0) % [place] % (Auto) (0.0-15.0) % Eos % (Auto) (0.0-7.0) % Baso % (Auto) (0.0-1.5) % Neut # (Auto) (1.4-5.7) K/uL Lymph # (Auto) (0.6-2.4) K/uL [place] # (Auto) (0.0-0.8) K/uL Eos # (Auto) (0.0-0.7) K/uL Baso # (Auto) (0.0-0.1) K/uL Nucleated RBC % /100WBC Nucleated RBCs # K/uL INR Sodium (136-145) mmol/L Potassium (3.5-5.1) mmol/L Chloride (98-107) mmol/L Carbon Dioxide (21.0-32.0) mmol/L BUN (7.0-18.0) mg/dL Creatinine (0.6-1.0) mg/dL Est Cr Clr Drug Dosing mL/min Estimated GFR (MDRD) ml/min Glucose (74-106) mg/dL POC Glucose 300 H (60-110) mg/dL Calcium (8.5-10.1) mg/dL Total Bilirubin (0.2-1.0) mg/dL AST (15-37) IU/L ALT (14-63) IU/L Alkaline Phosphatase (46-116) U/L Troponin I (0.000-0.056) ng/mL Total Protein (6.4-8.2) g/dL Albumin (3.4-5.0) g/dL Globulin (2.0-3.5) g/dL Albumin/Globulin Ratio (1.3-2.8) Meds: Medications Discontinued Medications Generic Name Dose Route Start Last Admin Trade Name Jeanette PRN Reason Stop Dose Admin Sodium Chloride 1,000 mls @ 999 mls/hr 01/05/18 01:23 01/05/18 01:40 Normal Saline IV 01/05/18 02:23 999 mls/hr .Bolus ONE Administration Sodium Chloride 10 ml 01/05/18 01:23 Saline Flush FLUSH ASDIRECTED PRN Keep Vein Open Sodium Chloride 2.5 ml 01/05/18 01:23 Saline Flush FLUSH ASDIRECTED PRN Keep Vein Open Departure - Departure Time of Disposition: 06:49 Disposition: Home, Self-Care 01 Condition: Good Clinical Impression: Palpitations - Discharge Information Instructions: Sinus Tachycardia Referrals: Kennedy Brooks MD [Primary Care Provider] - Forms: ED Department Discharge Additional Instructions: The following information is given to patients seen in the emergency department who are being discharged to home. This information is to outline your options for follow-up care. We provide all patients seen in our emergency department with a follow-up referral. The need for follow-up, as well as the timing and circumstances, are variable depending upon the specifics of your emergency department visit. If you don't have a primary care physician on staff, we will provide you with a referral. We always advise you to contact your personal physician following an emergency department visit to inform them of the circumstance of the visit and for follow-up with them and/or the need for any referrals to a consulting specialist. The emergency department will also refer you to a specialist when appropriate. This referral assures that you have the opportunity for followup care with a specialist. All of these measure are taken in an effort to provide you with optimal care, which includes your followup. Under all circumstances we always encourage you to contact your private physician who remains a resource for coordinating your care. When calling for followup care, please make the office aware that this follow-up is from your recent emergency room visit. If for any reason you are refused follow-up, please contact the [facility] emergency department at and asked to speak to the emergency department charge nurse. Continue current medications follow-up primary medical doctor return as needed as discussed - My Orders Last 24 Hours: My Active Orders 01/05/18 01:23 Cardiac Monitoring [RC] . DIRECTED Oxygen Therapy [RC] ASDIRECTED Pulse Oximetry [RC] ASDIRECTED Chest 1V Frontal [CR] Stat Saline Lock Insert [OM.PC] Stat 01/05/18 01:24 EKG Documentation Completion [RC] STAT - Assessment/Plan Last 24 Hours: My Active Orders 01/05/18 01:23 Cardiac Monitoring [RC] . DIRECTED Oxygen Therapy [RC] ASDIRECTED Pulse Oximetry [RC] ASDIRECTED Chest 1V Frontal [CR] Stat Saline Lock Insert [OM.PC] Stat 01/05/18 01:24 EKG Documentation Completion [RC] STAT
[2018-01-05 02:02] LABS: CHLORIDE,CL 101 mmol/L (98-107); SODIUM,NA 137 mmol/L (136-145)
[2018-01-05 02:55] VITALS: BP 153/86
--- NOTE | 2018-01-06 14:59 | CR ---
EXAM DATE: 01/05/18 PATIENT'S AGE: 77 Patient: GUILLERMO MENDEZ Facility: [facility], [place] Site . Site : [id number] Study: XRay Chest [id number]/29/2018 1:37:25 AM Ordering Physician: Janet Linda Final Report: HISTORY: Fast heart rate. FINDINGS: AP portable chest radiograph is compared with 17 September 2017. EKG leads overlie the thorax. Cardiac silhouette is at the upper limits of normal. Pulmonary vasculature is free cephalization. No lobar consolidation or pleural effusion is seen. There is stable mild hyperaeration. Bone anchors are seen within both humeral heads. IMPRESSION: 1. Stable mild hyperaeration. 2. No acute cardiopulmonary disease. Dictated by Jia Sutton MD @ 01/05/2018 2:07:52 AM Dictated by: Jia Sutton MD @ 01/05/2018 02:07:57 (Electronic Signature) Report Signed by Proxy. [facility] HEALTHAudrey
== END 2018-01-05 02:52 | disposition home or self-care (01) ==
LOC: MW.ED 01:09
DX: R00.2 Palpitations (principal); E11.9 Type 2 diabetes mellitus without complications; E78.00 Pure hypercholesterolemia, unspecified; Z88.2 Allergy status to sulfonamides; Z88.8 Allergy status to other drugs, medicaments and biological substances; Z79.82 Long term (current) use of aspirin; Z79.899 Other long term (current) drug therapy; Z79.4 Long term (current) use of insulin
CPT/HCPCS: 36415; 71045; 80053; 82962; 84484; 85025; 85610; 93005; 96360; 99285; J7040

== ENCOUNTER 2018-01-26 18:31 | Inpatient (IN) | payer MEDICARE, BC ==
[2018-01-26] MEDS ORDERED: Ondansetron 4 MG/2 ML SDV IVPUSH ONE (18:49)
[2018-01-26] MEDS ORDERED: HYDROmorphone 2 MG/ML Syringe IVPUSH ONE (18:49)
[2018-01-26] MEDS ORDERED: Sodium Chloride 0.9% 1,000 ML IV ONE (18:49)
[2018-01-26] MEDS ORDERED: HYDROmorphone 1 MG/ML Syringe ONE (19:06)
--- NOTE | 2018-01-26 19:18 | EDM.PDOC ---
ED HPI GENERAL MEDICAL PROBLEM - General Chief Complaint: Abdominal Pain Stated Complaint: PT HAS STOMACH PAINS Time Seen by Provider: 01/26/18 18:43 - History of Present Illness INITIAL COMMENTS - FREE TEXT/NARRATIVE: HISTORY AND PHYSICAL: History of present illness: Patient is 77-year-old female with history of diverticulitis who is being treated currently for acute exacerbation with amoxicillin and Atrovent Tejinder presents with increasing pain and abdominal cramping she denies fever chills nausea vomiting this diagnosis was made clinically last . Review of systems: As per history of present illness and below otherwise all systems reviewed and negative. Past medical history: As per history of present illness and as reviewed below otherwise noncontributory. Surgical history: As per history of present illness and as reviewed below otherwise noncontributory. Social history: No reported history of drug or alcohol abuse. Family history: As per history of present illness and as reviewed below otherwise noncontributory. Physical exam: HEENT: Atraumatic, normocephalic, pupils reactive, negative for conjunctival pallor or scleral icterus, mucous membranes moist, throat clear, neck supple, nontender, trachea midline. Lungs: Clear to auscultation, breath sounds equal bilaterally, chest nontender. Heart: S1S2, regular, negative for clicks, rubs, or JVD. Abdomen: Soft, nondistended, left-sided tenderness with mild guarding no rebound. Negative for masses or hepatosplenomegaly. Negative for costovertebral tenderness. Pelvis: Stable nontender. Genitourinary: Deferred. Rectal: Deferred. Extremities: Atraumatic, negative for cords or calf pain. Neurovascular unremarkable. Neuro: Awake, alert, oriented. Cranial nerves II through XII unremarkable. Cerebellum unremarkable. Motor and sensory unremarkable throughout. Exam nonfocal. Diagnostics: CBC CMP UA blood culture 2 CT abdomen and pelvis with IV contrast Therapeutics: Normal saline 1 L bolus Dilaudid 1 mg IV Zofran 4 mg Impression: #1 left-sided abdominal pain #2 history of diverticulitis Definitive disposition and diagnosis as appropriate pending reevaluation and review of above. abdominal pain Pain Score (Numeric/FACES): 8 - Related Data Allergies Allergy/AdvReac Type Severity Reaction Status Date / Time celecoxib [From Celebrex] Allergy Airway Verified 10/08/17 10:54 Tightness Sulfa (Sulfonamide Allergy Anaphylactic Verified 10/08/17 10:54 Antibiotics) Shock Home Meds: Home Meds Aspirin [Adult Low Dose Aspirin EC] 1 tab PO DAILY 10/03/16 [History] Calcium Citrate/Vitamin D3 [Citracal + D Maximum Caplet] 1 tab PO BID 10/03/16 [ History] Naproxen Sodium [Aleve] 1 tab PO ASDIRECTED PRN 10/03/16 [History] [place]-3S/DHA/Epa/Fish Oil [[place]-3 Fish Oil 1,200 mg Sfgl] 1,000 mg PO DAILY [History] Simvastatin [Zocor] 20 mg PO DAILY 10/03/16 [History] Insulin Isophane NPH, Human [NovoLIN N] 15 units INJECT ACBREAKFAST 09/17/17 [ History] Insulin NPH Human Isophane [Novolin N] 1 unit SUBCUT BEDTIME 10/08/17 [History] Magnesium Oxide 250 mg PO DAILY 10/08/17 [History] Pioglitazone HCl 0.5 tab PO DAILY 10/08/17 [History] Past Medical History HEENT History: Reports: Other (See Below) Other HEENT History: wears glasses Cardiovascular History: Reports: High Cholesterol Respiratory History: Reports: None Gastrointestinal History: Reports: Diverticulosis, Other (See Below) Other Gastrointestinal History: diverticulitis Genitourinary History: Reports: None BODY SPECIALIST History: Reports: None Musculoskeletal History: Reports: Arthritis Neurological History: Reports: None Psychiatric History: Reports: None Endocrine/Metabolic History: Reports: Diabetes, Type II Hematologic History: Reports: None Immunologic History: Reports: None Oncologic (Cancer) History: Reports: None Dermatologic History: Reports: None - Infectious Disease History Infectious Disease History: Reports: Chicken Pox, Measles - Past Surgical History Head Surgeries/Procedures: Reports: None HEENT Surgical History: Reports: None Cardiovascular Surgical History: Reports: None Respiratory Surgical History: Reports: None GI Surgical History: Reports: Appendectomy, Cholecystectomy, Colonoscopy Female Surgical History: Reports: Hysterectomy, Oophorectomy Endocrine Surgical History: Reports: None Neurological Surgical History: Reports: None Musculoskeletal Surgical History: Reports: Shoulder Surgery, Other (See Below) Other Musculoskeletal Surgeries/Procedures:: jefferson rotator cuff repair Oncologic Surgical History: Reports: None Dermatological Surgical History: Reports: None Social & Family History - Family History Family Medical History: Noncontributory - Caffeine Use Caffeine Use: Reports: Coffee ED ROS GENERAL - Review of Systems Review Of Systems: ROS reveals no pertinent complaints other than HPI. ED EXAM, GENERAL - Physical Exam Exam: See Below (See dictation) Course - Vital Signs Last Recorded V/S: Last Vital Signs Temp 36.3 C 01/26/18 21:08 Pulse 88 01/26/18 21:08 Resp 18 01/26/18 21:08 BP 123/72 01/26/18 21:08 Pulse Ox 95 01/26/18 21:08 - Orders/Labs/Meds Orders: Active Orders 24 hr Category Date Time Status Abdomen Pelvis w Cont [CT] Stat Exams 01/26/18 18:49 Taken CULTURE BLOOD [BC] Stat Lab 01/26/18 19:05 Received CULTURE BLOOD [BC] Stat Lab 01/26/18 19:18 Received UA W/MICROSCOPIC [URIN] Stat Lab 01/26/18 19:10 Ordered Ciprofloxacin in D5W [Cipro in D5W 400 MG/200 ML] 400 Med 01/26/18 21:20 Active mg Premix Bag 1 bag IV NOW metroNIDAZOLE/Normal Saline [Flagyl 500 MG in NS 100 ML Med 01/26/18 21:22 Active ] 500 mg Premix Bag 1 bag IV ONETIME Blood Culture x2 Reflex Set [OM.PC] Stat Oth 01/26/18 18:49 Ordered Medication Orders Ciprofloxacin/Dextrose 400 mg/ (Premix) 200 mls @ 200 mls/hr IV NOW STA Stop: 01/26/18 22:19 Metronidazole 500 mg/ Premix 100 mls @ 100 mls/hr IV ONETIME ONE Stop: 01/26/18 22:21 Labs: Laboratory Tests 01/26/18 01/26/18 01/26/18 Range/Units 19:05 19:05 19:05 WBC 8.62 (4.0-11.0) K/uL RBC 3.98 L (4.30-5.90) M/uL Hgb 11.7 L (12.0-16.0) g/dL Hct 35.1 L (36.0-46.0) % MCV 88.2 (80.0-98.0) fL MCH 29.4 (27.0-32.0) pg MCHC 33.3 (31.0-37.0) g/dL RDW Std Deviation 44.7 (28.0-62.0) fl RDW Coeff of Shae 14 (11.0-15.0) % Plt Count 248 (150-400) K/uL MPV 9.10 (7.40-12.00) fL Neut % (Auto) 89.2 H (48.0-80.0) % Lymph % (Auto) 5.1 L (16.0-40.0) % [place] % (Auto) 5.0 (0.0-15.0) % Eos % (Auto) 0.5 (0.0-7.0) % Baso % (Auto) 0.2 (0.0-1.5) % Neut # (Auto) 7.7 H (1.4-5.7) K/uL Lymph # (Auto) 0.4 L (0.6-2.4) K/uL [place] # (Auto) 0.4 (0.0-0.8) K/uL Eos # (Auto) 0.0 (0.0-0.7) K/uL Baso # (Auto) 0.0 (0.0-0.1) K/uL Nucleated RBC % 0.0 /100WBC Nucleated RBCs # 0 K/uL INR 1.00 Sodium 134 L (136-145) mmol/L Potassium 3.5 (3.5-5.1) mmol/L Chloride 101 (98-107) mmol/L Carbon Dioxide 24.0 (21.0-32.0) mmol/L BUN 10 (7.0-18.0) mg/dL Creatinine 0.7 (0.6-1.0) mg/dL Est Cr Clr Drug Dosing TNP Estimated GFR (MDRD) > 60.0 ml/min Glucose 246 H (74-106) mg/dL Calcium 8.9 (8.5-10.1) mg/dL Total Bilirubin 0.2 (0.2-1.0) mg/dL AST 17 (15-37) IU/L ALT 18 (14-63) IU/L Alkaline Phosphatase 65 (46-116) U/L Total Protein 7.2 (6.4-8.2) g/dL Albumin 3.1 L (3.4-5.0) g/dL Globulin 4.1 H (2.0-3.5) g/dL Albumin/Globulin Ratio 0.8 L (1.3-2.8) Lipase 61 L (73-393) U/L Urine Color Urine Appearance Urine pH (5.0-8.0) Ur Specific [place] (1.001-1.035) Urine Protein (NEGATIVE) mg/dL Urine Glucose (UA) (NEGATIVE) mg/dL Urine Ketones (NEGATIVE) mg/dL Urine Occult Blood (NEGATIVE) Urine Nitrite (NEGATIVE) Urine Bilirubin (NEGATIVE) Urine Urobilinogen (<2.0) EU/dL Ur Leukocyte Esterase (NEGATIVE) Urine RBC (0-2/HPF) Urine WBC (0-5/HPF) Ur Epithelial Cells (NONE-FEW) Urine Bacteria (NEGATIVE) 01/26/18 Range/Units 19:10 WBC (4.0-11.0) K/uL RBC (4.30-5.90) M/uL Hgb (12.0-16.0) g/dL Hct (36.0-46.0) % MCV (80.0-98.0) fL MCH (27.0-32.0) pg MCHC (31.0-37.0) g/dL RDW Std Deviation (28.0-62.0) fl RDW Coeff of Shae (11.0-15.0) % Plt Count (150-400) K/uL MPV (7.40-12.00) fL Neut % (Auto) (48.0-80.0) % Lymph % (Auto) (16.0-40.0) % [place] % (Auto) (0.0-15.0) % Eos % (Auto) (0.0-7.0) % Baso % (Auto) (0.0-1.5) % Neut # (Auto) (1.4-5.7) K/uL Lymph # (Auto) (0.6-2.4) K/uL [place] # (Auto) (0.0-0.8) K/uL Eos # (Auto) (0.0-0.7) K/uL Baso # (Auto) (0.0-0.1) K/uL Nucleated RBC % /100WBC Nucleated RBCs # K/uL INR Sodium (136-145) mmol/L Potassium (3.5-5.1) mmol/L Chloride (98-107) mmol/L Carbon Dioxide (21.0-32.0) mmol/L BUN (7.0-18.0) mg/dL Creatinine (0.6-1.0) mg/dL Est Cr Clr Drug Dosing Estimated GFR (MDRD) ml/min Glucose (74-106) mg/dL Calcium (8.5-10.1) mg/dL Total Bilirubin (0.2-1.0) mg/dL AST (15-37) IU/L ALT (14-63) IU/L Alkaline Phosphatase (46-116) U/L Total Protein (6.4-8.2) g/dL Albumin (3.4-5.0) g/dL Globulin (2.0-3.5) g/dL Albumin/Globulin Ratio (1.3-2.8) Lipase (73-393) U/L Urine Color YELLOW Urine Appearance CLEAR Urine pH 6.0 (5.0-8.0) Ur Specific [place] >= 1.030 (1.001-1.035) Urine Protein NEGATIVE (NEGATIVE) mg/dL Urine Glucose (UA) >=1000 (NEGATIVE) mg/dL Urine Ketones 15 H (NEGATIVE) mg/dL Urine Occult Blood NEGATIVE (NEGATIVE) Urine Nitrite NEGATIVE (NEGATIVE) Urine Bilirubin NEGATIVE (NEGATIVE) Urine Urobilinogen 0.2 (<2.0) EU/dL Ur Leukocyte Esterase NEGATIVE (NEGATIVE) Urine RBC 0-1 (0-2/HPF) Urine WBC 0-1 (0-5/HPF) Ur Epithelial Cells RARE (NONE-FEW) Urine Bacteria RARE (NEGATIVE) Meds: Medications Generic Name Dose Route Start Last Admin Trade Name Freq PRN Reason Stop Dose Admin Ciprofloxacin/Dextrose 400 mg/ 200 mls @ 200 mls/hr 01/26/18 21:20 Premix IV 01/26/18 22:19 NOW STA Metronidazole 500 mg/ Premix 100 mls @ 100 mls/hr 01/26/18 21:22 IV 01/26/18 22:21 ONETIME ONE Discontinued Medications Generic Name Dose Route Start Last Admin Trade Name Freq PRN Reason Stop Dose Admin Hydromorphone HCl 1 mg 01/26/18 18:49 01/26/18 19:29 Dilaudid IVPUSH 01/26/18 18:50 Not Given ONETIME ONE Hydromorphone HCl Confirm 01/26/18 19:06 01/26/18 19:29 Dilaudid Administered 01/26/18 19:07 Not Given Dose 1 mg .ROUTE .STK-MED ONE Hydromorphone HCl 1 mg 01/26/18 19:27 01/26/18 19:28 Dilaudid IVPUSH 01/26/18 19:28 1 mg ONETIME ONE Administration Sodium Chloride 1,000 mls @ 999 mls/hr 01/26/18 18:49 01/26/18 19:20 Normal Saline IV 01/26/18 19:49 999 mls/hr STAT ONE Administration Iopamidol 200 ml 01/26/18 20:33 01/26/18 20:34 Isovue Multipack-370 (76%) IVPUSH 01/26/18 20:34 100 ml ONETIME STA Administration Ondansetron HCl 4 mg 01/26/18 18:49 01/26/18 19:24 Zofran IVPUSH 01/26/18 18:50 4 mg ONETIME ONE Administration Departure - Departure Time of Disposition: 21:34 Disposition: Refer to Observation Condition: Good Clinical Impression: Diverticulitis - Discharge Information Forms: ED Department Discharge - My Orders Last 24 Hours: My Active Orders 01/26/18 18:49 Abdomen Pelvis w Cont [CT] Stat Blood Culture x2 Reflex Set [OM.PC] Stat 01/26/18 19:05 CULTURE BLOOD [BC] Stat 01/26/18 19:10 UA W/MICROSCOPIC [URIN] Stat 01/26/18 19:18 CULTURE BLOOD [BC] Stat 01/26/18 21:20 Ciprofloxacin in D5W [Cipro in D5W 400 MG/200 ML] 400 mg Premix Bag 1 bag IV NOW 01/26/18 21:22 metroNIDAZOLE/Normal Saline [Flagyl 500 MG in NS 100 ML] 500 mg Premix Bag 1 bag IV ONETIME - Assessment/Plan Last 24 Hours: My Active Orders 01/26/18 18:49 Abdomen Pelvis w Cont [CT] Stat Blood Culture x2 Reflex Set [OM.PC] Stat 01/26/18 19:05 CULTURE BLOOD [BC] Stat 01/26/18 19:10 UA W/MICROSCOPIC [URIN] Stat 01/26/18 19:18 CULTURE BLOOD [BC] Stat 01/26/18 21:20 Ciprofloxacin in D5W [Cipro in D5W 400 MG/200 ML] 400 mg Premix Bag 1 bag IV NOW 01/26/18 21:22 metroNIDAZOLE/Normal Saline [Flagyl 500 MG in NS 100 ML] 500 mg Premix Bag 1 bag IV ONETIME
[2018-01-26] MEDS ORDERED: HYDROmorphone 1 MG/ML Syringe IVPUSH ONE (19:27)
[2018-01-26 19:53] LABS: CHLORIDE,CL 101 mmol/L (98-107); SODIUM,NA 134 mmol/L (136-145)
[2018-01-26] MEDS ORDERED: Iopamidol 755 MG/ML 200 ML Multipack Bottle IVPUSH STA (20:33)
[2018-01-26] MEDS ORDERED: Ciprofloxacin in D5W 400 MG in Premix Bag 1 BAG IV STA ×2 (21:20)
[2018-01-26] MEDS ORDERED: metroNIDAZOLE/Normal Saline 500 MG in Premix Bag 1 BAG IV ONE (21:22)
[2018-01-26] MEDS ORDERED: HYDROmorphone 2 MG/ML SDV ONE (23:02)
[2018-01-26] MEDS ORDERED: Morphine 4 MG/ML Syringe IVPUSH PRN (23:26)
[2018-01-26] MEDS ORDERED: Albuterol/Ipratropium 3.0-0.5 MG/3 ML Neb Soln NEB PRN (23:26)
[2018-01-26] MEDS ORDERED: Sodium Chloride 0.9% 2.5 ML Syringe FLUSH PRN (23:26)
[2018-01-26] MEDS ORDERED: Sodium Chloride 0.9% 10 ML Syringe FLUSH PRN (23:26)
[2018-01-27] MEDS: Lactated Ringers 1,000 ML IV SCH (00:30)
[2018-01-27] MEDS: Ondansetron 4 MG/2 ML SDV IVPUSH PRN ×3 (00:33→23:30)
[2018-01-27] MEDS: Piperacillin/Tazobactam 4.5 GM in Sodium Chloride 0.9% 100 ML IV SCH ×4 (00:36→23:30)
[2018-01-27 05:33] LABS: CHLORIDE,CL 105 mmol/L (98-107); SODIUM,NA 139 mmol/L (136-145)
[2018-01-27] MEDS ORDERED: Insulin Aspart 100 Units/ML 3 ML Pen SUBCUT SCH (07:30)
--- NOTE | 2018-01-27 09:50 | PCM.HP ---
H&P History of Present Illness - General Date of Service: 01/27/18 Admit Problem/Dx: Admission Diagnosis/Problem Admission Diagnosis/Problem Diverticulitis Source of Information: Patient History Limitations: Reports: No Limitations - History of Present Illness Initial Comments - Free Text/Narative: This 77 year old female with pmh of DM type 2, on insulin, hypercholesterolemia and diverticulosis presented to te ED with concerns of worsening abodminal pain and cramping with watery diarrhea. She reports beginning of last week she started having some abdominal pain and cramps. She was unable to get into Dr Brooks, but did see Xena Tapia [employer] on Saturday and was started on Amoxicllin and Flagyl, due to history of elevated BS with diverticulitis flares while on Cipro. The pain and diarrhea continued to worsen to the point it was unbearable and she came to the ED. She denies fevers or chills, chest pain or SOB. She reports poor appetite with nausea and vomiting with watery diarrhea no black or bloody BMs. She reports the pain is lower left quadrant, sharp and cramping in nature. She last had a flare in September, in which she was hospitalized for as well. She since had a colonoscopy with Dr Proctor with biopsy of colon. Per operative reports, she has severe sigmoid diverticulosis and mild cecal erythema with tufting of the blood vessels suggestive of angiodysplasia. Biopsy showed mild non-specific inflammatory changes. PCP had set her up with GI specialist in [place], but appointment is not until April 2018. She is eager to see Dr Ruggiero, GI. In the ED no leukocytosis noted, Hgb 11.7, Na 134, BS 246, lipase 61, UA negative. CT abd/pelvis revealed mild bowel wall thickening and pericolonic edema involving the mid sigmoid colon likely represents a diverticulitis. No evidence of perforation. She was admitted and placed on Zosyn due to failed outpatient management of diverticulitis abdominal pain Pain Score (Numeric/FACES): 8 - Related Data Allergies/Adverse Reactions: Allergies Allergy/AdvReac Type Severity Reaction Status Date / Time celecoxib [From Celebrex] Allergy Airway Verified 10/08/17 10:54 Tightness Sulfa (Sulfonamide Allergy Anaphylactic Verified 10/08/17 10:54 Antibiotics) Shock Home Medications: Home Meds Aspirin [Adult Low Dose Aspirin EC] 1 tab PO DAILY 10/03/16 [History] Calcium Citrate/Vitamin D3 [Citracal + D Maximum Caplet] 1 tab PO BID 10/03/16 [ History] Naproxen Sodium [Aleve] 1 tab PO ASDIRECTED PRN 10/03/16 [History] Hamlet-3S/DHA/Epa/Fish Oil [Hamlet-3 Fish Oil 1,200 mg Sfgl] 1,000 mg PO DAILY [History] Simvastatin [Zocor] 20 mg PO DAILY 10/03/16 [History] Insulin Isophane NPH, Human [NovoLIN N] 15 units INJECT ACBREAKFAST 09/17/17 [ History] Insulin NPH Human Isophane [Novolin N] 1 unit SUBCUT BEDTIME 10/08/17 [History] Magnesium Oxide 250 mg PO DAILY 10/08/17 [History] Pioglitazone HCl 0.5 tab PO DAILY 10/08/17 [History] Past Medical History HEENT History: Reports: Other (See Below) Other HEENT History: wears glasses Cardiovascular History: Reports: High Cholesterol Respiratory History: Reports: None Gastrointestinal History: Reports: Diverticulosis, Other (See Below) Other Gastrointestinal History: diverticulitis Genitourinary History: Reports: None [employer] History: Reports: None Musculoskeletal History: Reports: Arthritis Neurological History: Reports: None Psychiatric History: Reports: None Endocrine/Metabolic History: Reports: Diabetes, Type II Hematologic History: Reports: None Immunologic History: Reports: None Oncologic (Cancer) History: Reports: None Dermatologic History: Reports: Eczema - Infectious Disease History Infectious Disease History: Reports: Chicken Pox, Measles - Past Surgical History Head Surgeries/Procedures: Reports: None HEENT Surgical History: Reports: None Cardiovascular Surgical History: Reports: None Respiratory Surgical History: Reports: None GI Surgical History: Reports: Appendectomy, Cholecystectomy, Colonoscopy Female Surgical History: Reports: Hysterectomy, Oophorectomy Endocrine Surgical History: Reports: None Neurological Surgical History: Reports: None Musculoskeletal Surgical History: Reports: Shoulder Surgery, Other (See Below) Other Musculoskeletal Surgeries/Procedures:: jefferson rotator cuff repair Oncologic Surgical History: Reports: None Dermatological Surgical History: Reports: None Social & Family History - Family History Family Medical History: Noncontributory - Tobacco Use Smoking Status *Q: Never Smoker Second Hand Smoke Exposure: No - Caffeine Use Caffeine Use: Reports: Coffee - Recreational Drug Use Recreational Drug Use: No H&P Review of Systems - Review of Systems: Review Of Systems: See Below General: Reports: Malaise. Denies: Fever, Chills HEENT: Reports: No Symptoms. Denies: Headaches, Hearing Changes, Sinus Congestion, Sore Throat Pulmonary: Reports: No Symptoms. Denies: Shortness of Breath, Wheezing, Pleuritic Chest Pain, Cough, Sputum Cardiovascular: Reports: No Symptoms. Denies: Chest Pain, Palpitations, Edema Gastrointestinal: Reports: Abdominal Pain, Diarrhea, Decreased Appetite, Nausea. Denies: Black Stool, Bloody Stool Genitourinary: Reports: Dysuria Musculoskeletal: Reports: No Symptoms Skin: Reports: No Symptoms Psychiatric: Reports: No Symptoms Neurological: Reports: No Symptoms Hematologic/Lymphatic: Reports: No Symptoms Immunologic: Reports: No Symptoms Exam - Exam Exam: See Below - Vital Signs Vital Signs: Last Vital Signs Temp 97.2 F 01/27/18 08:00 Pulse 95 01/27/18 08:00 Resp 18 01/27/18 08:00 BP 127/71 01/27/18 08:00 Pulse Ox 94 L 01/27/18 08:00 Weight: 56.2 kg - Exam General: Alert, Oriented, Cooperative HEENT: Conjunctiva Clear, Mucosa Moist & [place], Posterior Pharynx Clear Neck: Supple, Trachea Midline, 2 Lungs: Clear to Auscultation, Normal Respiratory Effort Cardiovascular: Regular Rate, Regular Rhythm GI/Abdominal Exam: Normal Bowel Sounds, Soft, No Distention, No Mass, Tender ( LLQ tenderness, cramping is much better. ). No: Distended, Guarding, Rigid, Rebound Extremities: Normal Inspection, Normal Range of Motion, Non-Tender, No Pedal Edema, Normal Capillary Refill Neuro Extensive - Mental Status: Alert, Oriented x3, Normal Mood/Affect, Normal Cognition Neuro Extensive - Motor, Sensory, Reflexes: CN II-XII Intact, Normal Gait, Normal Reflexes Psychiatric: Alert, Normal Affect, Normal Mood - Patient Data Lab Results Last 24 hrs: Laboratory Results - last 24 hr 01/26/18 01/26/18 01/26/18 Range/Units 19:05 19:05 19:05 WBC 8.62 (4.0-11.0) K/uL RBC 3.98 L (4.30-5.90) M/uL Hgb 11.7 L (12.0-16.0) g/dL Hct 35.1 L (36.0-46.0) % MCV 88.2 (80.0-98.0) fL MCH 29.4 (27.0-32.0) pg MCHC 33.3 (31.0-37.0) g/dL RDW Std Deviation 44.7 (28.0-62.0) fl RDW Coeff of Shae 14 (11.0-15.0) % Plt Count 248 (150-400) K/uL MPV 9.10 (7.40-12.00) fL Neut % (Auto) 89.2 H (48.0-80.0) % Lymph % (Auto) 5.1 L (16.0-40.0) % Coleman % (Auto) 5.0 (0.0-15.0) % Eos % (Auto) 0.5 (0.0-7.0) % Baso % (Auto) 0.2 (0.0-1.5) % Neut # (Auto) 7.7 H (1.4-5.7) K/uL Lymph # (Auto) 0.4 L (0.6-2.4) K/uL Coleman # (Auto) 0.4 (0.0-0.8) K/uL Eos # (Auto) 0.0 (0.0-0.7) K/uL Baso # (Auto) 0.0 (0.0-0.1) K/uL Nucleated RBC % 0.0 /100WBC Nucleated RBCs # 0 K/uL INR 1.00 Sodium 134 L (136-145) mmol/L Potassium 3.5 (3.5-5.1) mmol/L Chloride 101 (98-107) mmol/L Carbon Dioxide 24.0 (21.0-32.0) mmol/L BUN 10 (7.0-18.0) mg/dL Creatinine 0.7 (0.6-1.0) mg/dL Est Cr Clr Drug Dosing TNP Estimated GFR (MDRD) > 60.0 ml/min Glucose 246 H (74-106) mg/dL POC Glucose (60-110) mg/dL Calcium 8.9 (8.5-10.1) mg/dL Total Bilirubin 0.2 (0.2-1.0) mg/dL AST 17 (15-37) IU/L ALT 18 (14-63) IU/L Alkaline Phosphatase 65 (46-116) U/L Total Protein 7.2 (6.4-8.2) g/dL Albumin 3.1 L (3.4-5.0) g/dL Globulin 4.1 H (2.0-3.5) g/dL Albumin/Globulin Ratio 0.8 L (1.3-2.8) Lipase 61 L (73-393) U/L Urine Color Urine Appearance Urine pH (5.0-8.0) Ur Specific [place] (1.001-1.035) Urine Protein (NEGATIVE) mg/dL Urine Glucose (UA) (NEGATIVE) mg/dL Urine Ketones (NEGATIVE) mg/dL Urine Occult Blood (NEGATIVE) Urine Nitrite (NEGATIVE) Urine Bilirubin (NEGATIVE) Urine Urobilinogen (<2.0) EU/dL Ur Leukocyte Esterase (NEGATIVE) Urine RBC (0-2/HPF) Urine WBC (0-5/HPF) Ur Epithelial Cells (NONE-FEW) Urine Bacteria (NEGATIVE) H. pylori IgG Antibody (NEG) 01/26/18 01/27/18 01/27/18 Range/Units 19:10 05:05 05:05 WBC 7.93 (4.0-11.0) K/uL RBC 3.75 L (4.30-5.90) M/uL Hgb 10.9 L (12.0-16.0) g/dL Hct 33.4 L (36.0-46.0) % MCV 89.1 (80.0-98.0) fL MCH 29.1 (27.0-32.0) pg MCHC 32.6 (31.0-37.0) g/dL RDW Std Deviation 45.1 (28.0-62.0) fl RDW Coeff of Shae 14 (11.0-15.0) % Plt Count 217 (150-400) K/uL MPV 8.90 (7.40-12.00) fL Neut % (Auto) 86.1 H (48.0-80.0) % Lymph % (Auto) 8.1 L (16.0-40.0) % Coleman % (Auto) 5.5 (0.0-15.0) % Eos % (Auto) 0.0 (0.0-7.0) % Baso % (Auto) 0.3 (0.0-1.5) % Neut # (Auto) 6.8 H (1.4-5.7) K/uL Lymph # (Auto) 0.6 (0.6-2.4) K/uL Coleman # (Auto) 0.4 (0.0-0.8) K/uL Eos # (Auto) 0.0 (0.0-0.7) K/uL Baso # (Auto) 0.0 (0.0-0.1) K/uL Nucleated RBC % 0.0 /100WBC Nucleated RBCs # 0 K/uL INR Sodium 139 (136-145) mmol/L Potassium 3.8 (3.5-5.1) mmol/L Chloride 105 (98-107) mmol/L Carbon Dioxide 28.3 (21.0-32.0) mmol/L BUN 10 (7.0-18.0) mg/dL Creatinine 0.7 (0.6-1.0) mg/dL Est Cr Clr Drug Dosing 59.96 Estimated GFR (MDRD) > 60.0 ml/min Glucose 253 H (74-106) mg/dL POC Glucose (60-110) mg/dL Calcium 8.4 L (8.5-10.1) mg/dL Total Bilirubin (0.2-1.0) mg/dL AST (15-37) IU/L ALT (14-63) IU/L Alkaline Phosphatase (46-116) U/L Total Protein (6.4-8.2) g/dL Albumin (3.4-5.0) g/dL Globulin (2.0-3.5) g/dL Albumin/Globulin Ratio (1.3-2.8) Lipase (73-393) U/L Urine Color YELLOW Urine Appearance CLEAR Urine pH 6.0 (5.0-8.0) Ur Specific [place] >= 1.030 (1.001-1.035) Urine Protein NEGATIVE (NEGATIVE) mg/dL Urine Glucose (UA) >=1000 (NEGATIVE) mg/dL Urine Ketones 15 H (NEGATIVE) mg/dL Urine Occult Blood NEGATIVE (NEGATIVE) Urine Nitrite NEGATIVE (NEGATIVE) Urine Bilirubin NEGATIVE (NEGATIVE) Urine Urobilinogen 0.2 (<2.0) EU/dL Ur Leukocyte Esterase NEGATIVE (NEGATIVE) Urine RBC 0-1 (0-2/HPF) Urine WBC 0-1 (0-5/HPF) Ur Epithelial Cells RARE (NONE-FEW) Urine Bacteria RARE (NEGATIVE) H. pylori IgG Antibody (NEG) 01/27/18 01/27/18 01/27/18 Range/Units 05:05 05:05 06:40 WBC (4.0-11.0) K/uL RBC (4.30-5.90) M/uL Hgb (12.0-16.0) g/dL Hct (36.0-46.0) % MCV (80.0-98.0) fL MCH (27.0-32.0) pg MCHC (31.0-37.0) g/dL RDW Std Deviation (28.0-62.0) fl RDW Coeff of Shae (11.0-15.0) % Plt Count (150-400) K/uL MPV (7.40-12.00) fL Neut % (Auto) (48.0-80.0) % Lymph % (Auto) (16.0-40.0) % Coleman % (Auto) (0.0-15.0) % Eos % (Auto) (0.0-7.0) % Baso % (Auto) (0.0-1.5) % Neut # (Auto) (1.4-5.7) K/uL Lymph # (Auto) (0.6-2.4) K/uL Coleman # (Auto) (0.0-0.8) K/uL Eos # (Auto) (0.0-0.7) K/uL Baso # (Auto) (0.0-0.1) K/uL Nucleated RBC % /100WBC Nucleated RBCs # K/uL INR Sodium (136-145) mmol/L Potassium (3.5-5.1) mmol/L Chloride (98-107) mmol/L Carbon Dioxide (21.0-32.0) mmol/L BUN (7.0-18.0) mg/dL Creatinine (0.6-1.0) mg/dL Est Cr Clr Drug Dosing Estimated GFR (MDRD) ml/min Glucose (74-106) mg/dL POC Glucose 226 H (60-110) mg/dL Calcium (8.5-10.1) mg/dL Total Bilirubin (0.2-1.0) mg/dL AST (15-37) IU/L ALT (14-63) IU/L Alkaline Phosphatase (46-116) U/L Total Protein (6.4-8.2) g/dL Albumin (3.4-5.0) g/dL Globulin (2.0-3.5) g/dL Albumin/Globulin Ratio (1.3-2.8) Lipase 53 L (73-393) U/L Urine Color Urine Appearance Urine pH (5.0-8.0) Ur Specific [place] (1.001-1.035) Urine Protein (NEGATIVE) mg/dL Urine Glucose (UA) (NEGATIVE) mg/dL Urine Ketones (NEGATIVE) mg/dL Urine Occult Blood (NEGATIVE) Urine Nitrite (NEGATIVE) Urine Bilirubin (NEGATIVE) Urine Urobilinogen (<2.0) EU/dL Ur Leukocyte Esterase (NEGATIVE) Urine RBC (0-2/HPF) Urine WBC (0-5/HPF) Ur Epithelial Cells (NONE-FEW) Urine Bacteria (NEGATIVE) H. pylori IgG Antibody NEGATIVE (NEG) Result Diagrams: 01/27/18 05:05 01/27/18 05:05 - Problem List (1) Diverticulitis SNOMED Code(s): 515065788 ICD Code: K57.92 - DVTRCLI OF INTEST, PART UNSP, W/O PERF OR ABSCESS W/O BLEED Status: Acute Current Visit: Yes (2) DM type 2 (diabetes mellitus, type 2) SNOMED Code(s): 76204864 ICD Code: E11.9 - TYPE 2 DIABETES MELLITUS WITHOUT COMPLICATIONS Status: Chronic Current Visit: No Qualifiers: Diabetes mellitus equipment operator intermodal yard insulin use: with equipment operator intermodal yard use Diabetes mellitus complication status: with hyperglycemia Qualified Code(s): E11.65 - Type 2 diabetes mellitus with hyperglycemia; Z79.4 - continuous churn buttermaker (current) use of insulin; Z79.4 - continuous churn buttermaker (current) use of insulin; Z79.4 - continuous churn buttermaker (current ) use of insulin; Z79.4 - continuous churn buttermaker (current) use of insulin (3) HTN (hypertension) SNOMED Code(s): 67520312 ICD Code: I10 - ESSENTIAL (PRIMARY) HYPERTENSION Status: Chronic Current Visit: No Qualifiers: Hypertension type: essential hypertension Qualified Code(s): I10 - Essential (primary) hypertension Problem List Initiated/Reviewed/Updated: Yes Orders Last 24hrs: Active Orders 24 hr Category Date Time Status Patient Status [ADT] Stat ADT 01/26/18 21:36 Active Oxygen Therapy [RC] PRN Care 01/26/18 23:26 Active RT Aerosol Therapy [RC] ASDIRECTED Care 01/26/18 23:28 Active Up ad Sandy [RC] ASDIRECTED Care 01/26/18 23:26 Active VTE/DVT Education [RC] PER UNIT ROUTINE Care 01/26/18 23:26 Active Vital Signs [RC] Q4H Care 01/26/18 23:26 Active Abdomen Pelvis w Cont [CT] Stat Exams 01/26/18 18:49 Taken BASIC METABOLIC PANEL,BMP [CHEM] AM Lab 01/28/18 05:11 Ordered BASIC METABOLIC PANEL,BMP [CHEM] AM Lab 01/29/18 05:11 Ordered BASIC METABOLIC PANEL,BMP [CHEM] AM Lab 01/30/18 05:11 Ordered CBC WITH AUTO DIFF [HEME] AM Lab 01/28/18 05:11 Ordered CBC WITH AUTO DIFF [HEME] AM Lab 01/29/18 05:11 Ordered CBC WITH AUTO DIFF [HEME] AM Lab 01/30/18 05:11 Ordered CDIFF TOX A+B [OP] Routine Lab 01/27/18 07:59 Ordered CULTURE BLOOD [BC] Stat Lab 01/26/18 19:05 Received CULTURE BLOOD [BC] Stat Lab 01/26/18 19:18 Received CULTURE STOOL + CAMPY+SHIGATOX [RM] Routine Lab 01/27/18 07:54 Ordered UA W/MICROSCOPIC [URIN] Stat Lab 01/26/18 19:10 Ordered WBC, STOOL [OP] Routine Lab 01/27/18 07:54 Ordered Albuterol/Ipratropium [DuoNeb 3.0-0.5 MG/3 ML] Med 01/26/18 23:26 Active 3 ml NEB Q4HRRT PRN Insulin Aspart [NovoLOG] Med 01/27/18 07:30 Active See Protocol SUBCUT TIDAC Lactated Ringers [Ringers, Lactated] 1,000 ml Med 01/26/18 23:30 Active IV ASDIRECTED Morphine Med 01/26/18 23:26 Active 2 mg IVPUSH Q2H PRN Ondansetron [Zofran] Med 01/26/18 23:57 Active 4 mg IVPUSH Q4H PRN Piperacillin/Tazobactam [Piperacil-Tazobact] 4.5 gm Med 01/26/18 23:45 Active Sodium Chloride 0.9% [Normal Saline] 100 ml IV Q8H Sodium Chloride 0.9% [Saline Flush] Med 01/26/18 23:26 Active 10 ml FLUSH ASDIRECTED PRN Sodium Chloride 0.9% [Saline Flush] Med 01/26/18 23:26 Active 2.5 ml FLUSH ASDIRECTED PRN Blood Culture x2 Reflex Set [OM.PC] Stat Ot 01/26/18 18:49 Ordered Peripheral IV Insertion Adult [OM.PC] Routine Oth 01/26/18 23:26 Ordered Saline Lock Insert [OM.PC] Routine Oth 01/26/18 23:26 Ordered Sequential Compression Device [OM.PC] Per Unit Routine Oth 01/26/18 23:26 Ordered Resuscitation Status Routine Resus Stat 01/26/18 23:26 Ordered Medication Orders Albuterol/Ipratropium (Duoneb 3.0-0.5 Mg/3 Ml) 3 ml NEB Q4HRRT PRN PRN Reason: Shortness Of Breath/wheezing Lactated Ringer's (Ringers, Lactated) 1,000 mls @ 125 mls/hr IV ASDIRECTED [facility] Last Admin: 01/27/18 00:30 Dose: 125 mls/hr Piperacillin Sod/Tazobactam (Sod 4.5 gm/ Sodium Chloride) 100 mls @ 100 mls/hr IV Q8H [facility] Last Admin: 01/27/18 06:54 Dose: 100 mls/hr Infusion: 01/27/18 01:36 Dose: 100 mls/hr Admin: 01/27/18 00:36 Dose: 100 mls/hr Insulin Aspart (Novolog) 0 unit SUBCUT TIDAC [facility]; Protocol Last Admin: 01/27/18 07:01 Dose: 4 units Morphine Sulfate (Morphine) 2 mg IVPUSH Q2H PRN PRN Reason: Pain (severe 7-10) Stop: 01/27/18 23:27 Ondansetron HCl (Zofran) 4 mg IVPUSH Q4H PRN PRN Reason: Nausea/Vomiting Last Admin: 01/27/18 00:33 Dose: 4 mg Sodium Chloride (Saline Flush) 10 ml FLUSH ASDIRECTED PRN PRN Reason: Keep Vein Open Sodium Chloride (Saline Flush) 2.5 ml FLUSH ASDIRECTED PRN PRN Reason: Keep Vein Open Assessment/Plan Comment:: This 77 year old female admitted with sigmoid diverticulitis 1. Sigmoid diverticulitis: pain improving today, but appetite continues to be poor. Nausea intermittent. Will continue Zosyn and IVFs for now. Bowel rest until pain resolved. Stool cultures pending. 2. DM type 2: NPO, will continue Novolog every 6 hours. BS remained 200s. Monitor BS. VTE prophylaxis: pending Hemoccult. SCDs for now. consider adding Lovenox if hemoccult negative. Dispo: 1-2 days.
[2018-01-27] MEDS: Insulin Aspart 100 Units/ML 3 ML Pen SUBCUT SCH ×3 (12:59→23:34)
[2018-01-27] MEDS: Vancomycin 25 MG/ML Compounding Kit PO SCH ×3 (13:01→23:26)
--- NOTE | 2018-01-27 15:06 | CT ---
EXAM DATE: 01/27/18 PATIENT'S AGE: 77 Patient: GUILLERMO MENDEZ Facility: [place], [place] Site . Site : [id number] Study: CT Abdomen/Pelvis WITH [id number] 8:32:45 PM Ordering Physician: Doctor Morin Final Report: INDICATION: Lower abd pain, hx of diverticulitis TECHNIQUE: CT scan of the abdomen and pelvis with 100 cc of Isovue-300 given intravenously. COMPARISON: CT scan of the abdomen and pelvis dated 31 May 2017. FINDINGS: The lung bases show minimal dependent atelectasis. A few small scattered probable cysts in the liver are unchanged. No other focal abnormalities identified in the visualized portions of the liver, spleen, pancreas, adrenal glands, and kidneys. No hydronephrosis. No obstructing uroliths. Mild bowel wall thickening and pericolonic edema involving the mid sigmoid colon. The remainder of the GI tract is incompletely distended but shows no gross abnormalities. The stomach and GE junction are not well assessed. No retroperitoneal, pelvic sidewall, or mesenteric adenopathy. Atherosclerotic vascular calcifications. Degenerative changes of the spine. IMPRESSION: Mild bowel wall thickening and pericolonic edema involving the mid sigmoid colon likely represents a diverticulitis. No evidence of perforation. Recommend direct visualization with colonoscopy once the patient`s symptoms have resolved to exclude the possibility of an underlying neoplastic process. Dictated by Demetrio Vega MD @ 01/26/2018 8:54:15 PM Please note that all CT scans at this facility use dose modulation, iterative reconstruction, and/or weight-based dosing when appropriate to reduce radiation dose to as low as reasonably achievable. Dictated by: Demetrio Vega MD @ 01/26/2018 20:54:27 (Electronic Signature) Report Signed by Proxy. [facility] SYSTEMAudrey
[2018-01-28] MEDS: Lactated Ringers 1,000 ML IV SCH ×3 (06:00→21:47)
[2018-01-28] MEDS: Insulin Aspart 100 Units/ML 3 ML Pen SUBCUT SCH ×4 (06:30→23:27)
[2018-01-28 06:52] LABS: CHLORIDE,CL 105 mmol/L (98-107); SODIUM,NA 139 mmol/L (136-145)
[2018-01-28] MEDS: Piperacillin/Tazobactam 4.5 GM in Sodium Chloride 0.9% 100 ML IV SCH ×3 (06:53→22:55)
[2018-01-28] MEDS: Vancomycin 25 MG/ML Compounding Kit PO SCH ×4 (06:54→23:25)
[2018-01-28] MEDS ORDERED: Morphine 10 MG/ML Syringe IVPUSH PRN (07:50)
--- NOTE | 2018-01-28 09:02 | PCM.PN ---
- General Info Date of Service: 01/28/18 Admission Dx/Problem (Free Text): Admission Diagnosis/Problem Admission Diagnosis/Problem Diverticulitis, Cdiff colitis Subjective Update: Feeling ok this morning, had a total of 5 BMs since yesterday afternoon, watery in nature no blood. Continues to have intermittent cramping with some nausea. Pain is better, but continues to be tender to palpation. She does not like using the Morphine, she reports it makes her feel not right. Using Zofran PRN. No other complaints. No chest pain or SOB. Not feeling hungry at all. Functional Status: Reports: Pain Controlled, Ambulating, Urinating - Review of Systems General: Reports: Malaise. Denies: Fever HEENT: Reports: No Symptoms. Denies: Headaches, Sore Throat, Visual Changes Pulmonary: Reports: No Symptoms. Denies: Shortness of Breath, Cough, Sputum, Wheezing Cardiovascular: Reports: No Symptoms. Denies: Chest Pain, Palpitations, Edema, Lightheadedness Gastrointestinal: Reports: Abdominal Pain (intermittent cramping and tenderness to LLQ), Decreased Appetite, Diarrhea, Nausea. Denies: Melena, Vomiting Genitourinary: Reports: No Symptoms Musculoskeletal: Reports: No Symptoms Skin: Reports: No Symptoms Neurological: Reports: No Symptoms Psychiatric: Reports: No Symptoms - Patient Data Vitals - Most Recent: Last Vital Signs Temp 97.4 F 01/28/18 04:00 Pulse 95 01/28/18 04:00 Resp 18 01/28/18 04:00 BP 127/66 01/28/18 04:00 Pulse Ox 93 L 01/28/18 04:00 Weight - Most Recent: 56.2 kg I&O - Last 24 Hours: Intake & Output 01/27/18 01/28/18 01/28/18 22:59 06:59 14:59 Intake Total 1806 100 Output Total 601 100 Balance 1205 0 Lab Results Last 24 Hours: Laboratory Results - last 24 hr 01/27/18 01/27/18 01/27/18 Range/Units 12:27 16:23 23:32 WBC (4.0-11.0) K/uL RBC (4.30-5.90) M/uL Hgb (12.0-16.0) g/dL Hct (36.0-46.0) % MCV (80.0-98.0) fL MCH (27.0-32.0) pg MCHC (31.0-37.0) g/dL RDW Std Deviation (28.0-62.0) fl RDW Coeff of Shae (11.0-15.0) % Plt Count (150-400) K/uL MPV (7.40-12.00) fL Neut % (Auto) (48.0-80.0) % Lymph % (Auto) (16.0-40.0) % Desha % (Auto) (0.0-15.0) % Eos % (Auto) (0.0-7.0) % Baso % (Auto) (0.0-1.5) % Neut # (Auto) (1.4-5.7) K/uL Lymph # (Auto) (0.6-2.4) K/uL Desha # (Auto) (0.0-0.8) K/uL Eos # (Auto) (0.0-0.7) K/uL Baso # (Auto) (0.0-0.1) K/uL Nucleated RBC % /100WBC Nucleated RBCs # K/uL Sodium (136-145) mmol/L Potassium (3.5-5.1) mmol/L Chloride (98-107) mmol/L Carbon Dioxide (21.0-32.0) mmol/L BUN (7.0-18.0) mg/dL Creatinine (0.6-1.0) mg/dL Est Cr Clr Drug Dosing mL/min Estimated GFR (MDRD) ml/min Glucose (74-106) mg/dL POC Glucose 171 H 140 H 160 H (60-110) mg/dL Calcium (8.5-10.1) mg/dL 01/28/18 01/28/18 01/28/18 Range/Units 04:50 04:50 05:54 WBC 6.92 (4.0-11.0) K/uL RBC 4.02 L (4.30-5.90) M/uL Hgb 11.6 L (12.0-16.0) g/dL Hct 36.1 (36.0-46.0) % MCV 89.8 (80.0-98.0) fL MCH 28.9 (27.0-32.0) pg MCHC 32.1 (31.0-37.0) g/dL RDW Std Deviation 46.2 (28.0-62.0) fl RDW Coeff of Shae 14 (11.0-15.0) % Plt Count 256 (150-400) K/uL MPV 9.20 (7.40-12.00) fL Neut % (Auto) 67.4 (48.0-80.0) % Lymph % (Auto) 21.5 (16.0-40.0) % Desha % (Auto) 7.8 (0.0-15.0) % Eos % (Auto) 2.7 (0.0-7.0) % Baso % (Auto) 0.6 (0.0-1.5) % Neut # (Auto) 4.7 (1.4-5.7) K/uL Lymph # (Auto) 1.5 (0.6-2.4) K/uL Desha # (Auto) 0.5 (0.0-0.8) K/uL Eos # (Auto) 0.2 (0.0-0.7) K/uL Baso # (Auto) 0.0 (0.0-0.1) K/uL Nucleated RBC % 0.0 /100WBC Nucleated RBCs # 0 K/uL Sodium 139 (136-145) mmol/L Potassium 3.3 L (3.5-5.1) mmol/L Chloride 105 (98-107) mmol/L Carbon Dioxide 26.0 (21.0-32.0) mmol/L BUN 11 (7.0-18.0) mg/dL Creatinine 0.8 (0.6-1.0) mg/dL Est Cr Clr Drug Dosing 52.47 mL/min Estimated GFR (MDRD) > 60.0 ml/min Glucose 141 H (74-106) mg/dL POC Glucose 136 H (60-110) mg/dL Calcium 8.4 L (8.5-10.1) mg/dL Franc Results Last 24 Hours: Microbiology 01/27/18 11:05 Campylobacter Antigen Assay - Final Stool / Feces NEGATIVE CAMPYLOBACTER AG - Final NEGATIVE FOR SHIGA TOXIN 1 - Final NEGATIVE FOR SHIGA TOXIN 2 01/26/18 19:18 Aerobic Blood Culture - Preliminary Blood - Venous - Lab Draw NO GROWTH AFTER 1 DAY Anaerobic Blood Culture - Preliminary NO GROWTH AFTER 1 DAY 01/26/18 19:05 Aerobic Blood Culture - Preliminary Blood - Venous NO GROWTH AFTER 1 DAY Anaerobic Blood Culture - Preliminary NO GROWTH AFTER 1 DAY 01/27/18 11:05 Stool Occult Blood (FRANC) - Final Stool / Feces 01/27/18 11:05 Clostridium difficile Toxin A & B - Final Stool / Feces Positive C. Diff Antigen 01/27/18 11:05 Stool for WBCs - Final Stool / Feces POSITIVE FOR WBC'S Med Orders - Current: Current Medications Albuterol/Ipratropium (Duoneb 3.0-0.5 Mg/3 Ml) 3 ml NEB Q4HRRT PRN PRN Reason: Shortness Of Breath/wheezing Lactated Ringer's (Ringers, Lactated) 1,000 mls @ 125 mls/hr IV ASDIRECTED REJI Last Admin: 01/28/18 06:00 Dose: 125 mls/hr Piperacillin Sod/Tazobactam (Sod 4.5 gm/ Sodium Chloride) 100 mls @ 100 mls/hr IV Q8H [facility] Last Admin: 01/28/18 06:53 Dose: 100 mls/hr Insulin Aspart (Novolog) 0 unit SUBCUT Q6H [facility]; Protocol Last Admin: 01/28/18 06:30 Dose: Not Given Morphine Sulfate (Morphine) 2 mg IVPUSH Q4H PRN PRN Reason: Pain Ondansetron HCl (Zofran) 4 mg IVPUSH Q4H PRN PRN Reason: Nausea/Vomiting Last Admin: 01/27/18 23:30 Dose: 4 mg Sodium Chloride (Saline Flush) 10 ml FLUSH ASDIRECTED PRN PRN Reason: Keep Vein Open Sodium Chloride (Saline Flush) 2.5 ml FLUSH ASDIRECTED PRN PRN Reason: Keep Vein Open Vancomycin HCl (First-Vancomycin 25 Compounding Kit) 125 mg PO QID [facility] Last Admin: 01/28/18 06:54 Dose: 5 ml Discontinued Medications Hydromorphone HCl (Dilaudid) 1 mg IVPUSH ONETIME ONE Stop: 01/26/18 18:50 Last Admin: 01/26/18 19:29 Dose: Not Given Hydromorphone HCl (Dilaudid) Confirm Administered Dose 1 mg .ROUTE .STK-MED ONE Stop: 01/26/18 19:07 Last Admin: 01/26/18 19:29 Dose: Not Given Hydromorphone HCl (Dilaudid) 1 mg IVPUSH ONETIME ONE Stop: 01/26/18 19:28 Last Admin: 01/26/18 19:28 Dose: 1 mg Hydromorphone HCl (Dilaudid) Confirm Administered Dose 2 mg .ROUTE .STK-MED ONE Stop: 01/26/18 23:03 Last Admin: 01/26/18 23:07 Dose: 2 mg Sodium Chloride (Normal Saline) 1,000 mls @ 999 mls/hr IV STAT ONE Stop: 01/26/18 19:49 Last Admin: 01/26/18 19:20 Dose: 999 mls/hr Ciprofloxacin/Dextrose 400 mg/ (Premix) 200 mls @ 200 mls/hr IV NOW STA Stop: 01/26/18 22:19 Last Admin: 01/26/18 21:41 Dose: Not Given Metronidazole 500 mg/ Premix 100 mls @ 100 mls/hr IV ONETIME ONE Stop: 01/26/18 22:21 Last Admin: 01/26/18 21:35 Dose: 100 mls/hr Insulin Aspart (Novolog) 0 unit SUBCUT TIDAC REJI; Protocol Last Admin: 01/27/18 07:01 Dose: 4 units Iopamidol (Isovue Multipack-370 (76%)) 200 ml IVPUSH ONETIME STA Stop: 01/26/18 20:34 Last Admin: 01/26/18 20:34 Dose: 100 ml Morphine Sulfate (Morphine) 2 mg IVPUSH Q2H PRN PRN Reason: Pain (severe 7-10) Stop: 01/27/18 23:27 Ondansetron HCl (Zofran) 4 mg IVPUSH ONETIME ONE Stop: 01/26/18 18:50 Last Admin: 01/26/18 19:24 Dose: 4 mg - Exam Quality Assessment: DVT Prophylaxis. No: Supplemental Oxygen General: Alert, Oriented, Cooperative, No Acute Distress HEENT: Pupils Equal, Pupils Reactive Neck: Supple Lungs: Clear to Auscultation, Normal Respiratory Effort Cardiovascular: Regular Rate, Regular Rhythm, No Murmurs GI/Abdominal Exam: Normal Bowel Sounds, Soft, No Mass, Tender (LLQ). No: Guarding, Rebound Extremities: Normal Inspection, Normal Range of Motion, Non-Tender, No Pedal Edema, Normal Capillary Refill Neurological: No New Focal Deficit Psy/Mental Status: Alert, Normal Affect, Normal Mood - Problem List & Annotations (1) Clostridium difficile colitis SNOMED Code(s): 290084221 Code(s): A04.72 - ENTEROCOLITIS D/T CLOSTRIDIUM DIFFICILE, NOT SPCF RECUR Status: Acute Current Visit: Yes (2) Diverticulitis SNOMED Code(s): 586586875 Code(s): K57.92 - DVTRCLI OF INTEST, PART UNSP, W/O PERF OR ABSCESS W/O BLEED Status: Acute Current Visit: Yes (3) DM type 2 (diabetes mellitus, type 2) SNOMED Code(s): 68170401 Code(s): E11.9 - TYPE 2 DIABETES MELLITUS WITHOUT COMPLICATIONS Status: Chronic Current Visit: No Qualifiers: Diabetes mellitus ferry terminal agent insulin use: with ferry terminal agent use Diabetes mellitus complication status: with hyperglycemia Qualified Code(s): E11.65 - Type 2 diabetes mellitus with hyperglycemia; Z79.4 - alf (current) use of insulin; 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 insulin; Z79.4 - alf (current ) use of insulin; 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 insulin (4) HTN (hypertension) SNOMED Code(s): 19810682 Code(s): I10 - ESSENTIAL (PRIMARY) HYPERTENSION Status: Chronic Current Visit: No Qualifiers: Hypertension type: essential hypertension Qualified Code(s): I10 - Essential (primary) hypertension - Problem List Review Problem List Initiated/Reviewed/Updated: Yes - My Orders Last 24 Hours: My Active Orders 01/27/18 12:00 Blood Glucose Check, Bedside [RC] Q6H Insulin Aspart [NovoLOG] See Protocol SUBCUT Q6H 01/27/18 12:35 Vancomycin [First-Vancomycin 25 Compounding Kit] 125 mg PO QID 01/27/18 14:27 Patient Status [ADT] Stat 01/28/18 07:50 Morphine 2 mg IVPUSH Q4H PRN - Plan Plan:: This 77 year old female admitted with sigmoid diverticulitis 1. Cdiff colitis: Vancomycin added PO 125 mg QID. Diarrhea improving. Continues to be watery with intermittent cramping. Will add Probiotics. No leukocytosis. 2. Sigmoid diverticulitis: Cramping improving. Appetite continues to be poor. Nausea intermittent. Will continue Zosyn and IVFs for now. Bowel rest until pain resolved. Stool cultures positive for Cdiff. Hemoccult negative. 3. DM type 2: NPO, will continue Novolog every 6 hours. BS improved to 140s. VTE prophylaxis: Lovenox. Dispo: 2-3 days.
[2018-01-28] MEDS: Enoxaparin 40 MG/0.4 ML Syringe SUBCUT SCH (09:53)
[2018-01-28] MEDS ORDERED: Potassium Chloride 20 MEQ Tab.ER PO ONE (10:18)
[2018-01-28] MEDS: Acidophilus with Citrus Pectin Tab PO SCH (11:43)
[2018-01-28] MEDS ORDERED: Bismuth Subsalicylate 262 MG/15 ML Susp 236 ML Bottle PO PRN (13:00)
[2018-01-29 05:45] LABS: CHLORIDE,CL 105 mmol/L (98-107); SODIUM,NA 142 mmol/L (136-145)
[2018-01-29] MEDS: Vancomycin 25 MG/ML Compounding Kit PO SCH (05:51)
[2018-01-29] MEDS: Insulin Aspart 100 Units/ML 3 ML Pen SUBCUT SCH (05:53)
[2018-01-29] MEDS: Lactated Ringers 1,000 ML IV SCH (06:59)
[2018-01-29 07:35] VITALS: BP 143/71
[2018-01-29] MEDS: Piperacillin/Tazobactam 4.5 GM in Sodium Chloride 0.9% 100 ML IV SCH (07:35)
[2018-01-29] MEDS ORDERED: Magnesium Sulfate/Water 4 GM in Premix Bag 1 BAG IV ONE (08:00)
[2018-01-29] MEDS ORDERED: Morphine 4 MG/ML Syringe IVPUSH PRN (08:45)
[2018-01-29] MEDS: Enoxaparin 40 MG/0.4 ML Syringe SUBCUT SCH (09:04)
[2018-01-29] MEDS: Acidophilus with Citrus Pectin Tab PO SCH (09:04)
--- NOTE | 2018-01-29 11:17 | PCM.DCSUM1 ---
Discharge Summary - Hospital Course Brief History: This 77 year old female with pmh of DM type 2, on insulin, hypercholesterolemia and diverticulosis presented to te ED with concerns of worsening abodminal pain and cramping with watery diarrhea. She reports beginning of last week she started having some abdominal pain and cramps. She was unable to get into Dr Brooks, but did see Xena Tapia [employer] E[employer] DEVELOPER on Saturday and was started on Amoxicllin and Flagyl, due to history of elevated BS with diverticulitis flares while on Cipro. The pain and diarrhea continued to worsen to the point it was unbearable and she came to the ED. She denies fevers or chills, chest pain or SOB. She reports poor appetite with nausea and vomiting with watery diarrhea no black or bloody BMs. She reports the pain is lower left quadrant, sharp and cramping in nature. She last had a flare in September, in which she was hospitalized for as well. She since had a colonoscopy with Dr Proctor with biopsy of colon. Per operative reports, she has severe sigmoid diverticulosis and mild cecal erythema with tufting of the blood vessels suggestive of angiodysplasia. Biopsy showed mild non-specific inflammatory changes. PCP had set her up with GI specialist in [place], but appointment is not until April 2018. She is eager to see Dr Ruggiero, GI. In the ED no leukocytosis noted, Hgb 11.7, Na 134, BS 246, lipase 61, UA negative. CT abd/ pelvis revealed mild bowel wall thickening and pericolonic edema involving the mid sigmoid colon likely represents a diverticulitis. No evidence of perforation. She was admitted and placed on Zosyn due to failed outpatient management of diverticulitis - Discharge Data Discharge Date: 01/29/18 Discharge Disposition: Home, Self-Care 01 Condition: Good - Discharge Diagnosis/Problem(s) (1) Clostridium difficile colitis SNOMED Code(s): 268085745 ICD Code: A04.72 - ENTEROCOLITIS D/T CLOSTRIDIUM DIFFICILE, NOT SPCF RECUR Status: Acute (2) Diverticulitis SNOMED Code(s): 503415208 ICD Code: K57.92 - DVTRCLI OF INTEST, PART UNSP, W/O PERF OR ABSCESS W/O BLEED Status: Acute (3) DM type 2 (diabetes mellitus, type 2) SNOMED Code(s): 43402696 ICD Code: E11.9 - TYPE 2 DIABETES MELLITUS WITHOUT COMPLICATIONS Status: Chronic Qualifiers: Diabetes mellitus correction insulin use: with intermediate project manager use Diabetes mellitus complication status: with hyperglycemia Qualified Code(s): E11.65 - Type 2 diabetes mellitus with hyperglycemia; Z79.4 - middle or intermediate school principal (current) use of insulin; Z79.4 - middle or intermediate school principal (current) use of insulin; Z79.4 - middle or intermediate school principal (current ) use of insulin; Z79.4 - custodial (current) use of insulin (4) HTN (hypertension) SNOMED Code(s): 77605552 ICD Code: I10 - ESSENTIAL (PRIMARY) HYPERTENSION Status: Chronic Qualifiers: Hypertension type: essential hypertension Qualified Code(s): I10 - Essential (primary) hypertension - Patient Instructions Diet: Drink 8-10+ Glasses/Day, GI Soft/Low Residue/Low Fiber (limit dairy products. Slowly increase to regular) Activity: As Tolerated, No Strenuous Activities Showering/Bathing: May Shower Notify Provider of: Fever, Increased Pain, Swelling and Redness, Drainage, Nausea and/or Vomiting Other/Special Instructions: Return to ED in diarrhea worsens and/or unable to keep liquids down. - Discharge Plan Prescriptions/Med Rec: Amoxicillin/Clavulanate K [Augmentin 875-125 MG] 1 tab PO Q8H #13 tablet RX: Saccharomyces Boulardii [Florastor] 250 mg PO BID #60 cap RX: Vancomycin [First-Vancomycin 25 Compounding Kit] 125 mg PO QID #250 ml Home Medications: Home Meds Amoxicillin/Clavulanate K [Augmentin 875-125 MG] 1 tab PO Q8H #13 tablet [Rx] RX: Dicyclomine [Bentyl] 20 mg PO QIDACANDBED 01/29/18 [History] RX: Empagliflozin [Jardiance] 25 mg PO DAILY 01/29/18 [History] RX: Insulin NPH Human Isophane [Novolin N] 12 unit SQ ACBREAKFAST 01/29/18 [ History] RX: Metoprolol Tartrate 25 mg PO DAILY 01/29/18 [History] RX: Pioglitazone [Actos] 15 mg PO DAILY 01/29/18 [History] RX: Saccharomyces Boulardii [Florastor] 250 mg PO BID #60 cap 01/29/18 [Rx] RX: Sertraline HCl 25 mg PO DAILY 01/29/18 [History] RX: Vancomycin [First-Vancomycin 25 Compounding Kit] 125 mg PO QID #250 ml 01/29 [Rx] RX: metFORMIN [Glucophage XR] 1,000 mg PO DAILY 01/29/18 [History] Patient Handouts: Diverticulitis, [id number], Clostridium Difficile Infection , [id number] Referrals: [facility] [Outside] Xena Tapia [employer] DEVELOPER [Ordering Only Provider] - 02/05/18 10:30 am - Discharge Summary/Plan Comment DC Time >30 min.: No Discharge Summary/Plan Comment: Discharge Diagnoses: Cdiff colitis Acute Diverticulitis HTN DM type 2 Brittany was admitted due to failed outpatient treatment of diverticulitis with worsening abdominal pain. She was admitted and treated with Zosyn IV. Stool studies were obtained due to watery diarrhea. She was noted to be Cdiff positive. PO Vancomycin was started 125 mg PO QID. She was kept NPO due to abdominal pain with nausea and vomiting. Pain improved steadily along with nausea. She was also started on probiotics. Today she was feeling much better and eager to eat and be discharged home. She continued to have some diarrhea 3- 4 times daily. She tolerated BRAT soft diet. She will be sent home with 7 more days of Augmentin for diverticulitis to completed a total of 10 days. She will also have 12 more days of PO Vancomycin 125 mg QID for Cdiff. She will also be sent home with Probiotics BID and to continue throughout her course of antibiotics. She was encouraged to return to clinic or ED promptly if diarrhea worsens, pain returns or she becomes nauseated. She verbally understands and agrees. She is to see PCP in 1 week and has previously arrange appointment with BEATRIZ Martínez in [facility] in April. - General Info Date of Service: 01/29/18 Admission Dx/Problem (Free Text: Admission Diagnosis/Problem Admission Diagnosis/Problem Diverticulitis, Cdiff colitis Subjective Update: Feeling much better today. Abdominal pain much better. eager to eat and be discharged today. Functional Status: Reports: Pain Controlled, Tolerating Diet, Ambulating, Urinating - Review of Systems General: Reports: No Symptoms. Denies: Weakness, Fatigue, Malaise Pulmonary: Reports: No Symptoms. Denies: Shortness of Breath Cardiovascular: Reports: No Symptoms. Denies: Chest Pain, Palpitations Gastrointestinal: Reports: Diarrhea. Denies: Abdominal Pain, Nausea, Vomiting Genitourinary: Reports: No Symptoms. Denies: Dysuria, Frequency, Burning Musculoskeletal: Reports: No Symptoms Skin: Reports: No Symptoms Neurological: Reports: No Symptoms Psychiatric: Reports: No Symptoms - Patient Data Vitals - Most Recent: Last Vital Signs Temp 97.9 F 01/29/18 07:34 Pulse 86 01/29/18 07:34 Resp 16 01/29/18 07:34 BP 143/71 H 01/29/18 07:34 Pulse Ox 95 01/29/18 07:34 Weight - Most Recent: 56.2 kg I&O - Last 24 hours: Intake & Output 01/28/18 01/29/18 01/29/18 22:59 06:59 14:59 Intake Total 1685 520 999 Output Total 550 2100 Balance 1135 -1580 999 Lab Results - Last 24 hrs: Laboratory Results - last 24 hr 01/28/18 01/28/18 01/28/18 Range/Units 11:49 17:02 21:59 WBC (4.0-11.0) K/uL RBC (4.30-5.90) M/uL Hgb (12.0-16.0) g/dL Hct (36.0-46.0) % MCV (80.0-98.0) fL MCH (27.0-32.0) pg MCHC (31.0-37.0) g/dL RDW Std Deviation (28.0-62.0) fl RDW Coeff of Shae (11.0-15.0) % Plt Count (150-400) K/uL MPV (7.40-12.00) fL Neut % (Auto) (48.0-80.0) % Lymph % (Auto) (16.0-40.0) % [place] % (Auto) (0.0-15.0) % Eos % (Auto) (0.0-7.0) % Baso % (Auto) (0.0-1.5) % Neut # (Auto) (1.4-5.7) K/uL Lymph # (Auto) (0.6-2.4) K/uL [place] # (Auto) (0.0-0.8) K/uL Eos # (Auto) (0.0-0.7) K/uL Baso # (Auto) (0.0-0.1) K/uL Nucleated RBC % /100WBC Nucleated RBCs # K/uL Sodium (136-145) mmol/L Potassium (3.5-5.1) mmol/L Chloride (98-107) mmol/L Carbon Dioxide (21.0-32.0) mmol/L BUN (7.0-18.0) mg/dL Creatinine (0.6-1.0) mg/dL Est Cr Clr Drug Dosing mL/min Estimated GFR (MDRD) ml/min Glucose (74-106) mg/dL POC Glucose 118 H 122 H 99 (60-110) mg/dL Calcium (8.5-10.1) mg/dL Magnesium (1.5-2.0) mg/dL 01/29/18 01/29/18 01/29/18 Range/Units 05:10 05:10 05:50 WBC 4.76 (4.0-11.0) K/uL RBC 3.76 L (4.30-5.90) M/uL Hgb 10.8 L (12.0-16.0) g/dL Hct 33.2 L (36.0-46.0) % MCV 88.3 (80.0-98.0) fL MCH 28.7 (27.0-32.0) pg MCHC 32.5 (31.0-37.0) g/dL RDW Std Deviation 43.8 (28.0-62.0) fl RDW Coeff of Shae 14 (11.0-15.0) % Plt Count 211 (150-400) K/uL MPV 8.90 (7.40-12.00) fL Neut % (Auto) 58.3 (48.0-80.0) % Lymph % (Auto) 27.1 (16.0-40.0) % [place] % (Auto) 7.6 (0.0-15.0) % Eos % (Auto) 5.7 (0.0-7.0) % Baso % (Auto) 1.3 (0.0-1.5) % Neut # (Auto) 2.8 (1.4-5.7) K/uL Lymph # (Auto) 1.3 (0.6-2.4) K/uL [place] # (Auto) 0.4 (0.0-0.8) K/uL Eos # (Auto) 0.3 (0.0-0.7) K/uL Baso # (Auto) 0.1 (0.0-0.1) K/uL Nucleated RBC % 0.0 /100WBC Nucleated RBCs # 0 K/uL Sodium 142 (136-145) mmol/L Potassium 3.5 (3.5-5.1) mmol/L Chloride 105 (98-107) mmol/L Carbon Dioxide 23.2 (21.0-32.0) mmol/L BUN 6 L (7.0-18.0) mg/dL Creatinine 0.6 (0.6-1.0) mg/dL Est Cr Clr Drug Dosing 69.96 mL/min Estimated GFR (MDRD) > 60.0 ml/min Glucose 112 H (74-106) mg/dL POC Glucose 105 (60-110) mg/dL Calcium 8.0 L (8.5-10.1) mg/dL Magnesium 1.2 L (1.5-2.0) mg/dL FAUSTO Results - Last 24 hrs: Microbiology 01/27/18 11:05 Stool Culture - Final Stool / Feces NO SALMONELLA, SHIGELLA,OR E.COLI O157 ISOLATED Campylobacter Antigen Assay - Final NEGATIVE CAMPYLOBACTER AG - Final NEGATIVE FOR SHIGA TOXIN 1 - Final NEGATIVE FOR SHIGA TOXIN 2 01/26/18 19:18 Aerobic Blood Culture - Preliminary Blood - Venous - Lab Draw NO GROWTH AFTER 2 DAYS Anaerobic Blood Culture - Preliminary NO GROWTH AFTER 2 DAYS 01/26/18 19:05 Aerobic Blood Culture - Preliminary Blood - Venous NO GROWTH AFTER 2 DAYS Anaerobic Blood Culture - Preliminary NO GROWTH AFTER 2 DAYS Med Orders - Current: Current Medications Acidophilus/Pectin (Acidophilus/Pectin, Vance) 1 tab PO DAILY REJI Last Admin: 01/29/18 09:04 Dose: 1 tab Albuterol/Ipratropium (Duoneb 3.0-0.5 Mg/3 Ml) 3 ml NEB Q4HRRT PRN PRN Reason: Shortness Of Breath/wheezing Bismuth Subsalicylate (Pepto Bismol) 30 ml PO Q6H PRN PRN Reason: Diarrhea Enoxaparin Sodium (Lovenox) 40 mg SUBCUT Q24H [facility] Last Admin: 01/29/18 09:04 Dose: 40 mg Piperacillin Sod/Tazobactam (Sod 4.5 gm/ Sodium Chloride) 100 mls @ 100 mls/hr IV Q8H [facility] Last Admin: 01/29/18 07:35 Dose: 100 mls/hr Insulin Aspart (Novolog) 0 unit SUBCUT Q6H [facility]; Protocol Last Admin: 01/29/18 05:53 Dose: Not Given Morphine Sulfate (Morphine) 2 mg IVPUSH Q4H PRN PRN Reason: Pain Ondansetron HCl (Zofran) 4 mg IVPUSH Q4H PRN PRN Reason: Nausea/Vomiting Last Admin: 01/27/18 23:30 Dose: 4 mg Sodium Chloride (Saline Flush) 10 ml FLUSH ASDIRECTED PRN PRN Reason: Keep Vein Open Sodium Chloride (Saline Flush) 2.5 ml FLUSH ASDIRECTED PRN PRN Reason: Keep Vein Open Vancomycin HCl (First-Vancomycin 25 Compounding Kit) 125 mg PO QID [facility] Last Admin: 01/29/18 05:51 Dose: 5 ml Discontinued Medications Hydromorphone HCl (Dilaudid) 1 mg IVPUSH ONETIME ONE Stop: 01/26/18 18:50 Last Admin: 01/26/18 19:29 Dose: Not Given Hydromorphone HCl (Dilaudid) Confirm Administered Dose 1 mg .ROUTE .STK-MED ONE Stop: 01/26/18 19:07 Last Admin: 01/26/18 19:29 Dose: Not Given Hydromorphone HCl (Dilaudid) 1 mg IVPUSH ONETIME ONE Stop: 01/26/18 19:28 Last Admin: 01/26/18 19:28 Dose: 1 mg Hydromorphone HCl (Dilaudid) Confirm Administered Dose 2 mg .ROUTE .STK-MED ONE Stop: 01/26/18 23:03 Last Admin: 01/26/18 23:07 Dose: 2 mg Sodium Chloride (Normal Saline) 1,000 mls @ 999 mls/hr IV STAT ONE Stop: 01/26/18 19:49 Last Admin: 01/26/18 19:20 Dose: 999 mls/hr Ciprofloxacin/Dextrose 400 mg/ (Premix) 200 mls @ 200 mls/hr IV NOW STA Stop: 01/26/18 22:19 Last Admin: 01/26/18 21:41 Dose: Not Given Metronidazole 500 mg/ Premix 100 mls @ 100 mls/hr IV ONETIME ONE Stop: 01/26/18 22:21 Last Admin: 01/26/18 21:35 Dose: 100 mls/hr Lactated Ringer's (Ringers, Lactated) 1,000 mls @ 125 mls/hr IV ASDIRECTED [facility] Last Admin: 01/29/18 06:59 Dose: 125 mls/hr Magnesium Sulfate 4 gm/ Premix 100 mls @ 50 mls/hr IV ONETIME ONE Stop: 01/29/18 09:59 Last Admin: 01/29/18 09:03 Dose: 50 mls/hr Insulin Aspart (Novolog) 0 unit SUBCUT TIDAC [facility]; Protocol Last Admin: 01/27/18 07:01 Dose: 4 units Iopamidol (Isovue Multipack-370 (76%)) 200 ml IVPUSH ONETIME STA Stop: 01/26/18 20:34 Last Admin: 01/26/18 20:34 Dose: 100 ml Morphine Sulfate (Morphine) 2 mg IVPUSH Q2H PRN PRN Reason: Pain (severe 7-10) Stop: 01/27/18 23:27 Morphine Sulfate (Morphine) 2 mg IVPUSH Q4H PRN PRN Reason: Pain Ondansetron HCl (Zofran) 4 mg IVPUSH ONETIME ONE Stop: 01/26/18 18:50 Last Admin: 01/26/18 19:24 Dose: 4 mg Potassium Chloride (Klor-Con M20) 40 meq PO ONETIME ONE Stop: 01/28/18 10:19 Last Admin: 01/28/18 11:42 Dose: 40 meq - Exam General: Reports: Alert, Oriented, Cooperative, No Acute Distress Neck: Reports: Supple Lungs: Reports: Clear to Auscultation, Normal Respiratory Effort Cardiovascular: Reports: Regular Rate, Regular Rhythm GI/Abdominal Exam: Normal Bowel Sounds, Soft, Non-Tender, No Organomegaly, No Distention, No Abnormal Bruit, No Mass, Pelvis Stable Back Exam: Reports: Normal Inspection, Full Range of Motion Extremities: Normal Inspection, Normal Range of Motion, Non-Tender, No Pedal Edema, Normal Capillary Refill Skin: Reports: Warm, Dry, Intact Neurological: Reports: No New Focal Deficit Psy/Mental Status: Reports: Alert, Normal Affect, Normal Mood
== END 2018-01-29 12:15 | disposition home or self-care (01) | DRG 372 ==
LOC: MW.ED 18:31 → MW.MS 23:02 → OBSVTOIN 01-27 14:27 → MW.MS 01-27 17:56
PROVIDERS: ADMIT Internal Medicine; ATTEND Internal Medicine
DX: K57.92 Diverticulitis of intestine, part unspecified, without perforation or abscess without bleeding (principal); R10.9 Unspecified abdominal pain; A04.72 Enterocolitis due to Clostridium difficile, not specified as recurrent; E11.9 Type 2 diabetes mellitus without complications; Z87.19 Personal history of other diseases of the digestive system; K57.32 Diverticulitis of large intestine without perforation or abscess without bleeding; E11.65 Type 2 diabetes mellitus with hyperglycemia; E78.00 Pure hypercholesterolemia, unspecified; I10 Essential (primary) hypertension; Z88.2 Allergy status to sulfonamides; Z88.8 Allergy status to other drugs, medicaments and biological substances; Z79.899 Other long term (current) drug therapy; Z79.82 Long term (current) use of aspirin; Z79.4 Long term (current) use of insulin
CPT/HCPCS: 36415 ×2; 74177; 80048; 80053; 81001; 82272; 82962 ×2; 83630; 83690 ×2; 85025 ×2; 85610; 86677; 87040 ×2; 87046; 87324; 87899 ×3; 96361; 96365; 96375; 99285; A9270; J1170 ×2; J1815; J2405 ×2; J2543 ×2; J7030 ×2; J7040; J7120; Q9967; 83735; 96366; 96376; G0378; J1650; J3475

== ENCOUNTER 2022-09-04 02:01 | Emergency (ER) | payer MEDICARE, BC ==
[2022-09-04] MEDS ORDERED: Metoprolol Tartrate 5 MG/5 ML SDV IVPUSH ONE (02:25)
[2022-09-04] MEDS ORDERED: Sodium Chloride 0.9% 500 ML IV SCH (02:30)
[2022-09-04 03:10] LABS: CARBON DIOXIDE,CO2 28.8 mmol/L (21.0-32.0); POTASSIUM,K 3.6 mmol/L (3.5-5.1)
[2022-09-04 03:54] VITALS: BP 134/68; PULSE 82
== END 2022-09-04 04:01 | disposition home or self-care (01) ==
LOC: MW.ED 02:01
DX: E11.649 Type 2 diabetes mellitus with hypoglycemia without coma (principal); I10 Essential (primary) hypertension; E78.5 Hyperlipidemia, unspecified; E78.00 Pure hypercholesterolemia, unspecified; Z88.2 Allergy status to sulfonamides; Z88.8 Allergy status to other drugs, medicaments and biological substances; Z79.899 Other long term (current) drug therapy; Z79.4 Long term (current) use of insulin
CPT/HCPCS: 36415; 80053; 82947; 83735; 84484; 85025; 93005; 96361; 96374; 99285; J3490; J7040

== ENCOUNTER 2022-11-21 13:45 | Emergency (ER) | payer MEDICARE, BC ==
[2022-11-21 15:16] VITALS: BP 139/80; PULSE 93
[2022-11-21] MEDS ORDERED: traMADol 50 MG Tab PO ONE (16:28)
== END 2022-11-21 17:15 | disposition home or self-care (01) ==
LOC: MW.ED 13:45
DX: S52.501A Unspecified fracture of the lower end of right radius, initial encounter for closed fracture (principal); S52.601A Unspecified fracture of lower end of right ulna, initial encounter for closed fracture; E78.00 Pure hypercholesterolemia, unspecified; E11.9 Type 2 diabetes mellitus without complications; Z88.2 Allergy status to sulfonamides; Z88.8 Allergy status to other drugs, medicaments and biological substances; Z79.4 Long term (current) use of insulin; Z79.899 Other long term (current) drug therapy; W00.0XXA Fall on same level due to ice and snow, initial encounter
CPT/HCPCS: 29125; 73100; 99283; A9270; 99284

== ENCOUNTER 2024-02-27 09:06 | Observation (INO) | payer MEDICARE, BC ==
[2024-02-27] MEDS: Lactated Ringers 1,000 ML IV STA (09:42)
[2024-02-27 09:43] LABS: BASE EXCESS VENOUS -1.4 (-2.0-3.0); PH,VENOUS 7.37 (7.31-7.41)
[2024-02-27 09:46] LABS: BASOPHILS ABSOLUTE AUTO 0.07 K/uL (0.00-0.20); BASOPHILS PERCENT AUTO 0.7 % (0.0-1.0); EOSINOPHILS ABSOLUTE AUTO 0.08 K/uL (0.00-0.45); EOSINOPHILS PERCENT AUTO 0.8 % (0.0-6.0); HEMATOCRIT 37.2 % (37.0-47.0); HEMOGLOBIN 12.3 g/dL (12.0-16.0); IMMATURE GRAN ABSOLUTE AUTO 0.04 K/uL (0.00-0.05); IMMATURE GRAN PERCENT AUTO 0.4 % (0.0-0.4); LYMPHOCYTES ABSOLUTE AUTO 0.74 K/uL (1.00-4.80); MEAN CORPUSCULAR HEMOGLOBIN 30.2 pg (28.0-32.0); MEAN CORPUSCULAR HGB CONC 33.1 g/dL (32.0-36.0); MEAN CORPUSCULAR VOLUME 91.4 fL (83.0-99.0); MEAN PLATELET VOLUME 9.9 fL (9.4-12.3); MONOCYTES ABSOLUTE AUTO 0.46 K/uL (0.00-0.80); MONOCYTES PERCENT AUTO 4.3 % (0.0-8.0); NEUTROPHILS ABSOLUTE AUTO 9.25 K/uL (1.80-7.70); NEUTROPHILS PERCENT AUTO 86.8 % (41.0-71.0); PLATELET COUNT,PLT 224 K/uL (150-400); RED BLOOD CELL COUNT 4.07 M/uL (4.10-5.30); WHITE BLOOD CELL COUNT,WBC 10.64 K/uL (3.9-11.3)
[2024-02-27] MEDS: Sodium Chloride 0.9% 10 ML Syringe FLUSH PRN ×2 (09:46)
[2024-02-27] MEDS: Sodium Chloride 0.9% 2.5 ML Syringe FLUSH PRN ×2 (09:46)
[2024-02-27 10:10] LABS: HEMOGLOBIN A1C 8.4 %
[2024-02-27 10:14] LABS: A/G RATIO 0.9 (0.9-1.6); BILIRUBIN TOTAL 0.6 mg/dL (0.2-1.0); CALCIUM 9.1 mg/dL (8.5-10.1); CARBON DIOXIDE,CO2 22.8 mmol/L (21.0-32.0); CREATININE 1.2 mg/dL (0.6-1.0); EST CRCL DRUG DOSING (CG) 31.75 mL/min; MAGNESIUM 1.6 mg/dL (1.8-2.4); POTASSIUM,K 5.7 mmol/L (3.5-5.1); PROTEIN TOTAL,TP 6.4 g/dL (6.4-8.2)
[2024-02-27] MEDS: Sodium Chloride 0.9% 1,000 ML IV ONE (10:54)
[2024-02-27] MEDS ORDERED: Glucagon,Human Recombinant 1 MG Vial IM PRN ×4 (11:05→23:54)
[2024-02-27] MEDS ORDERED: 50% Dextrose in Water 50 ML Syringe IVPUSH PRN ×4 (11:05→23:54)
[2024-02-27] MEDS: Insulin Regular, Human 100 Units/ML 10 ML Vial SUBCUT ONE (11:30)
[2024-02-27] MEDS ORDERED: Sodium Chloride 0.9% 2.5 ML Syringe FLUSH PRN (12:14)
[2024-02-27] MEDS ORDERED: Docusate Sodium 100 MG Cap PO PRN (12:14)
[2024-02-27] MEDS ORDERED: Sodium Chloride 0.9% 10 ML Syringe FLUSH PRN (12:14)
[2024-02-27] MEDS: Sodium Chloride 0.9% 1,000 ML IV SCH (13:03)
[2024-02-27] MEDS ORDERED: Fluticasone NASAL Spray 16 GM Bottle NASBOTH PRN (13:25)
[2024-02-27] MEDS: Insulin Aspart 100 Units/ML 3 ML Pen SUBCUT ONE (13:32)
[2024-02-27] MEDS ORDERED: Insulin Aspart 100 Units/ML 3 ML Pen SUBCUT SCH (17:00)
[2024-02-27] MEDS: INSULIN PUMP SUBCUT SCH (17:31)
[2024-02-27 18:42] LABS: CALCIUM 8.5 mg/dL (8.5-10.1); CARBON DIOXIDE,CO2 24.8 mmol/L (21.0-32.0); CREATININE 0.8 mg/dL (0.6-1.0); EST CRCL DRUG DOSING (CG) 47.62 mL/min; POTASSIUM,K 4.1 mmol/L (3.5-5.1)
[2024-02-27] MEDS: atorvaSTATin 10 MG Tab PO SCH (20:18)
[2024-02-27] MEDS: Acetaminophen 325 MG Tab PO PRN (20:18)
[2024-02-27] MEDS: Insulin Aspart 100 Units/ML 3 ML Pen SUBCUT SCH (23:55)
[2024-02-28] MEDS: Insulin Aspart 100 Units/ML 3 ML Pen SUBCUT ONE ×2 (00:37→12:50)
[2024-02-28] MEDS: Ondansetron 4 MG/2 ML SDV IVPUSH PRN (00:46)
[2024-02-28 05:58] LABS: BASOPHILS ABSOLUTE AUTO 0.04 K/uL (0.00-0.20); BASOPHILS PERCENT AUTO 0.3 % (0.0-1.0); EOSINOPHILS ABSOLUTE AUTO 0.01 K/uL (0.00-0.45); EOSINOPHILS PERCENT AUTO 0.1 % (0.0-6.0); HEMATOCRIT 31.7 % (37.0-47.0); HEMOGLOBIN 10.5 g/dL (12.0-16.0); IMMATURE GRAN ABSOLUTE AUTO 0.04 K/uL (0.00-0.05); IMMATURE GRAN PERCENT AUTO 0.3 % (0.0-0.4); LYMPHOCYTES ABSOLUTE AUTO 0.79 K/uL (1.00-4.80); LYMPHOCYTES PERCENT AUTO 6.2 % (24.0-44.0); MEAN CORPUSCULAR HEMOGLOBIN 30.3 pg (28.0-32.0); MEAN CORPUSCULAR HGB CONC 33.1 g/dL (32.0-36.0); MEAN CORPUSCULAR VOLUME 91.4 fL (83.0-99.0); MEAN PLATELET VOLUME 10.2 fL (9.4-12.3); MONOCYTES ABSOLUTE AUTO 0.61 K/uL (0.00-0.80); MONOCYTES PERCENT AUTO 4.8 % (0.0-8.0); NEUTROPHILS ABSOLUTE AUTO 11.18 K/uL (1.80-7.70); NEUTROPHILS PERCENT AUTO 88.3 % (41.0-71.0); PLATELET COUNT,PLT 205 K/uL (150-400); RED BLOOD CELL COUNT 3.47 M/uL (4.10-5.30); WHITE BLOOD CELL COUNT,WBC 12.67 K/uL (3.9-11.3)
[2024-02-28 06:13] LABS: CALCIUM 8.3 mg/dL (8.5-10.1); CARBON DIOXIDE,CO2 24.2 mmol/L (21.0-32.0); CREATININE 0.9 mg/dL (0.6-1.0); EST CRCL DRUG DOSING (CG) 42.33 mL/min; MAGNESIUM 1.5 mg/dL (1.8-2.4); POTASSIUM,K 4.2 mmol/L (3.5-5.1)
[2024-02-28] MEDS: Pioglitazone 15 MG Tab PO SCH (08:31)
[2024-02-28] MEDS: Aspirin 81 MG Tab.Chew PO SCH (08:32)
[2024-02-28] MEDS: Diltiazem 120 MG Cap.CD PO SCH (08:33)
[2024-02-28] MEDS: Insulin Aspart 100 Units/ML 3 ML Pen SUBCUT SCH (08:50)
[2024-02-28 11:41] VITALS: BP 106/72; PULSE 85
== END 2024-02-28 14:50 | disposition home or self-care (01) ==
LOC: MW.ED 09:06 → MW.MS 11:23
PROVIDERS: ADMIT Internal Medicine; ATTEND Internal Medicine
DX: E11.65 Type 2 diabetes mellitus with hyperglycemia (principal); N17.9 Acute kidney failure, unspecified; I47.10 Supraventricular tachycardia, unspecified; E87.5 Hyperkalemia; I10 Essential (primary) hypertension; R51.9 Headache, unspecified; Z88.8 Allergy status to other drugs, medicaments and biological substances; Z88.2 Allergy status to sulfonamides; Z79.4 Long term (current) use of insulin; Z79.82 Long term (current) use of aspirin; Z79.899 Other long term (current) drug therapy
CPT/HCPCS: 36415; 70450; 71046; 80048; 80053; 82009; 82803; 82947; 83036; 83690; 83735; 84484; 85025; 93005; 96360; 96361; 99285; A9270; J1815; J2405; J3490; J7030; J7120; 93010; 96374; G0378

== ENCOUNTER 2024-02-28 21:26 | Emergency (ER) | payer MEDICARE, BC ==
[2024-02-28 21:43] LABS: BASE EXCESS VENOUS -4.5 (-2.0-3.0); BASOPHILS ABSOLUTE AUTO 0.06 K/uL (0.00-0.20); BASOPHILS PERCENT AUTO 0.7 % (0.0-1.0); EOSINOPHILS ABSOLUTE AUTO 0.11 K/uL (0.00-0.45); EOSINOPHILS PERCENT AUTO 1.3 % (0.0-6.0); HEMOGLOBIN 11.2 g/dL (12.0-16.0); IMMATURE GRAN ABSOLUTE AUTO 0.01 K/uL (0.00-0.05); IMMATURE GRAN PERCENT AUTO 0.1 % (0.0-0.4); LYMPHOCYTES PERCENT AUTO 13.2 % (24.0-44.0); MEAN CORPUSCULAR HGB CONC 32.9 g/dL (32.0-36.0); MEAN CORPUSCULAR VOLUME 91.2 fL (83.0-99.0); MEAN PLATELET VOLUME 9.8 fL (9.4-12.3); MONOCYTES ABSOLUTE AUTO 0.62 K/uL (0.00-0.80); MONOCYTES PERCENT AUTO 7.4 % (0.0-8.0); NEUTROPHILS ABSOLUTE AUTO 6.44 K/uL (1.80-7.70); NEUTROPHILS PERCENT AUTO 77.3 % (41.0-71.0); PH,VENOUS 7.37 (7.31-7.41); PLATELET COUNT,PLT 228 K/uL (150-400); RED BLOOD CELL COUNT 3.73 M/uL (4.10-5.30); WHITE BLOOD CELL COUNT,WBC 8.34 K/uL (3.9-11.3)
[2024-02-28] MEDS: Sodium Chloride 0.9% 10 ML Syringe FLUSH PRN (21:47)
[2024-02-28] MEDS: Sodium Chloride 0.9% 2.5 ML Syringe FLUSH PRN (21:47)
[2024-02-28 22:11] LABS: APPEARANCE,URINE CLEAR; BILIRUBIN,URINE NEGATIVE (NEGATIVE); COLOR,URINE YELLOW; GLUCOSE,URINE >=1000 mg/dL (NEGATIVE); KETONES,URINE 15 mg/dL (NEGATIVE); LEUKOCYTE ESTERASE,URINE NEGATIVE (NEGATIVE); NITRITE,URINE NEGATIVE (NEGATIVE); OCCULT BLOOD,URINE NEGATIVE (NEGATIVE); PH,URINE 5.5 (5.0-8.0); PROTEIN,URINE NEGATIVE (NEGATIVE); UROBILINOGEN,URINE 0.2 EU/dL (<2.0)
[2024-02-28 22:20] LABS: CALCIUM 9.3 mg/dL (8.5-10.1); CARBON DIOXIDE,CO2 19.8 mmol/L (21.0-32.0); CREATININE 1.2 mg/dL (0.6-1.0); EST CRCL DRUG DOSING (CG) 31.75 mL/min; POTASSIUM,K 4.9 mmol/L (3.5-5.1)
[2024-02-28] MEDS: Sodium Chloride 0.9% 1,000 ML IV STA (22:46)
[2024-02-28] MEDS ORDERED: 50% Dextrose in Water 50 ML Syringe IVPUSH PRN (22:56)
[2024-02-28] MEDS ORDERED: Glucagon,Human Recombinant 1 MG Vial IM PRN (22:56)
[2024-02-28] MEDS: Insulin Regular, Human 100 Units/ML 10 ML Vial IVPUSH ONE (23:03)
[2024-02-29 01:10] LABS: A/G RATIO 0.8 (0.9-1.6); ALBUMIN 2.5 g/dL (3.4-5.0); BILIRUBIN TOTAL 0.3 mg/dL (0.2-1.0); CALCIUM 8.4 mg/dL (8.5-10.1); CARBON DIOXIDE,CO2 24.3 mmol/L (21.0-32.0); CREATININE 0.9 mg/dL (0.6-1.0); EST CRCL DRUG DOSING (CG) 42.33 mL/min; POTASSIUM,K 3.9 mmol/L (3.5-5.1); PROTEIN TOTAL,TP 5.6 g/dL (6.4-8.2)
[2024-02-29 01:22] VITALS: BP 116/57; PULSE 85
== END 2024-02-29 01:51 | disposition home or self-care (01) ==
LOC: MW.ED 21:26
DX: E11.65 Type 2 diabetes mellitus with hyperglycemia (principal); E78.00 Pure hypercholesterolemia, unspecified; E11.9 Type 2 diabetes mellitus without complications; Z88.2 Allergy status to sulfonamides; Z88.8 Allergy status to other drugs, medicaments and biological substances; Z79.899 Other long term (current) drug therapy; Z79.4 Long term (current) use of insulin; Z79.82 Long term (current) use of aspirin; Z90.49 Acquired absence of other specified parts of digestive tract; Z90.710 Acquired absence of both cervix and uterus; Z75.8 Other problems related to medical facilities and other health care
CPT/HCPCS: 36415; 80048; 80053; 81003; 82803; 85025; 93005; 96360; 99285; J3490; J7030; 93010; 99284; J1815-GY